=== PATIENT | female | born 1965 | race Caucasian/White ===

== ENCOUNTER 2022-12-10 14:47 | Inpatient (IN) | payer OTHER, SELFPAY ==
[2022-12-10] VITALS (59 sets, daily range): BP systolic 129–197; BP diastolic 79–162; PULSE 77–111; RESP 12–26; TEMP 36.4–36.7; O2SAT 87–100; BMI 48.1
--- NOTE | 2022-12-10 15:05 | XRR_ITS ---
PROCEDURE INFORMATION: Exam: XR Chest Exam date and time: 12/10/2022 3:15 PM Age: 57 years old Clinical indication: Dyspnea TECHNIQUE: Imaging protocol: Radiologic exam of the chest. Views: 1 view. COMPARISON: No relevant prior studies available. FINDINGS: Tubes, catheters and devices: Surgical clips project over the right axillary region. Lungs: There is increased interstitial markings, in association with small left pleural effusion, which in the setting of cardiomegaly is consistent with pulmonary edema. Pneumonia should be excluded clinically. No pneumothorax. Pleural spaces: See Lungs finding. Heart/Mediastinum: Mildly enlarged heart. Bones/joints: Unremarkable. XR/XR chest 1V portable [id number] IMPRESSION: Imaging findings of pulmonary edema with small left pleural effusion. Pneumonia should be excluded clinically.
--- NOTE | 2022-12-10 15:16 | ED_ITS ---
HPI - SOB/Dyspnea General: Chief Complaint: Shortness of Breath/Dyspnea Stated Complaint: SOB Time Seen by Provider: 12/10/22 15:01 Source: patient and family (sisters) Mode of arrival: ambulatory Limitations: no limitations History of Present Illness: HPI Narrative: 57-year-old female presents to the emergency department complaining of 1 month of progressive shortness of breath. She has also noticed progressive lower extremity edema and now her sisters are noticing some upper extremity edema. Patient endorses orthopnea and shortness of breath with minimal exertion. She went to her primary care doctor and was diagnosed with a bronchitis and sinus infection during the first few weeks of her shortness of breath. She was told she had a murmur at that time. She went back and saw another provider yesterday. They started her on Lasix 20 mg once daily. They also told her she might have congestive heart failure. Additionally she had some erythema in the right lower extremity on the anterior arias and they prescribed her Bactrim telling her it was MRSA Associated symptoms: Reports orthopnea; Deny abdominal pain, chest pain, extremity pain, fever(s), hemoptysis, nausea, palpitations, syncope or vomiting Review of Systems General: Reports: 10 or more systems reviewed and unremarkable except in HPI and below Const: Denies: fever(s), chills or body aches Eyes: Denies: change in vision ENMT: Denies: throat pain Card: Reports: edema, swelling of feet/ankles, dyspnea on exertion and orthopnea; Denies: chest pain, palpitations or syncope Resp: Reports: dyspnea and non-productive cough; Denies: productive cough, pain on inspiration or hemoptysis GI: Denies: abdominal pain, nausea, vomiting or diarrhea : Denies: flank pain, dysuria or urinary frequency Musc: Denies: neck pain, back pain, extremity pain or extremity swelling Skin/Breast: Reports: erythema (Right anterior arias) Neuro: Denies: headache(s), numbness in extremities, weakness in extremities, lack of coordination or difficulty walking PFS ED PFSH: Medical History (Updated 12/10/22 @ 17:32 by Raúl Clarke MD) History of breast cancer Hypertension Surgical History (Updated 12/10/22 @ 17:30 by Raúl Clarke MD) History of mastectomy Family History (Updated 12/10/22 @ 17:30 by Raúl Clarke MD) Sister CAD (coronary artery disease) Hypertension Brother CAD (coronary artery disease) Hypertension Social History (Updated 12/10/22 @ 17:31 by Raúl Clarke MD) Smoking and tobacco status: never smoked Alcohol intake: never Substance/Drug Use: never Physical Exam Const: COMMON NORMALS: no limitations, alert and well nourished; negative for average body habitus (Obese) EXAM LIMITATIONS: no altered mental status HENMT: COMMON NORMALS: normocephalic, atraumatic and external ears normal HEAD & SCALP: normocephalic and atraumatic EXTERNAL EAR: Yes external ears normal MOUTH: no muffled voice Eye: COMMON NORMALS: EOMs intact bilaterally, conjunctivae normal and no scleral icterus CONJUNCTIVA: Yes conjunctivae normal Neck/C-Spine: COMMON NORMALS: no JVD GENERAL: Yes normal visual inspection and Yes trachea midline Chest: OTHER: Breast cancer on the right side status post axillary lymph node dissection Resp: EFFORT & INSPECTION: Yes tachypneic, No pursed lip breathing, Yes labored, No Actively coughing, No retractions, No uses accessory muscles, No audible wheezes and No tracheal deviation AUSCULTATION: diminished lung sounds Cardio: COMMON NORMALS: no JVD and regular rhythm RATE: tachycardic R HYTHM: regular rhythm HEART SOUNDS: Murmur heart sound present OTHER: Bilateral lower extremity pitting edema 3+ GI: COMMON NORMALS: Soft to palpation and non-tender PALPATION: Yes Soft to palpation and No Guarding due to palpation present (GI) Extremity: NARRATIVE EXTREMITY EXAM: Bilateral lower extremity edema. Mild edema in the hands Neuro: COMMON NORMALS: moves all extremities, no focal motor deficits and no sensory deficits noted SENSORIUM/ORIENTATION: Yes alert SPEECH: speech normal Psych: COMMON NORMALS: mental status grossly normal, Normal thought process present, cooperative, normal affect and speech normal SPEECH: Yes normal speech THOUGHT PROCESS: Normal thought process present Skin: OTHER: The reported MRSA infection in her right lower extremity is actually petechial tattooing from increased compartment pressures due to the swelling. It is not warm, tender, and does not have the appearance of cellulitis nor purulent MRSA. Course Vital Signs: Vital signs: Vital Signs Temperature 97.5 F L 12/10/22 14:54 Pulse Rate 84 12/10/22 18:10 Respiratory Rate 21 H 12/10/22 15:35 Blood Pressure 164/108 12/10/22 18:10 Pulse Oximetry 96 12/10/22 17:45 Oxygen Delivery Me thod 12/10/22 18:00 MDM - SOB/Dyspnea Medical Decision Making 57-year-old female with progressive symptoms of congestive heart failure. She is quite hypertensive here but states she gets quite nervous when she comes to the doctor. She has a loud heart murmur which may be the culprit for her con gestive heart failure. This would be a new diagnosis. She has never had an echocardiogram. She has 3+ pitting edema. Patient needs an urgent echocardiogram. I will start her diuresis. We will check her kidney function and electrolytes. She denies any known ischemic heart disease or any congenital or genetic cardiomyopathies. Patient is a non-smoker. I have started with 2 inches of nitroglycerin on the chest to decrease preload and blood pressure. I have started with 40 mg of IV Lasix. An EKG, chest x-ray, labs are pending. Patient will likely need admission based on her symptomatology. EKG shows a sinus rhythm at a rate of 92 bpm, there is a left axis deviation, there is nonspecific moderate intraventricular conduction delay, there is delayed R wave progression which could be a sign of old anterior infarction, there are Q waves noted in the inferior leads which could be a sign of old myocardial infarction. There is possible mild atrial enlargement on the left based on P wave morphology. The chest x-ray shows pulmonary vascular congestion and left-sided pleural effus ion. The patient's hemoglobin is mildly low at 10. The patient's blood pressure has not improved with settling in and calming down. Nitroglycerin 2 inch paste did not improve her blood pressure. Patient will be started on nitroglycerin drip. I have spoken with the hospitalist and the patient will be admitted to the [facility]. Lab Data 12/10/22 15:59 12/10/22 15:59 Labs/Radiology: Radiology Impressions Chest X-Ray 12/10/22 15:05 IMPRESSION: Imaging findings of pulmonary edema with small left pleural effusion. Pneumonia should be excluded clinically. Laboratory Results WBC 5.7 10^3/uL (4.0-10.0) 12/10/22 15:59 RBC 4.09 10^6/uL (4.1-5.3) L 12/10/22 15:59 Hgb 10.0 g/dL (11.5-15.3) L 12/10/22 15:59 Hct 33.8 % (37.0-47.0) L 12/10/22 15:59 MCV 82.6 fl (81-99) 12/10/22 15:59 MCH 24.4 pg (28.0-34.0) L 12/10/22 15:59 MCHC 29.6 g/dL (30.0-36.0) L 12/10/22 15:59 RDW 17.3 % (12.1-15.1) H 12/10/22 15:59 Plt Count 185 10^3/cmm (130-400) 12/10/22 15:59 MPV 10.0 fL (7.4-10.4) 12/10/22 15:59 Neut % (Auto) 74.9 % 12/10/22 15:59 Lymph % (Auto) 14.2 % 12/10/22 15:59 [place] % (Auto) 7.9 % 12/10/22 15:59 Eos % (Auto) 2.1 % 12/10/22 15:59 Baso % (Auto) 0.7 % 12/10/22 15:59 Neut # (Auto) 4.27 10^3/uL (1.8-7.7) 12/10/22 15:59 Lymph # (Auto) 0.8 10^3/uL (0.8-4.8) 12/10/22 15:59 [place] # (Auto) 0.5 10^3/uL (0.2-0.9) 12/10/22 15:59 Eos # (Auto) 0.1 10^3/uL (0.0-0.8) 12/10/22 15:59 Baso # (Auto) 0.0 10^3/uL (0.0-0.1) 12/10/22 15:59 Nucleated RBC % (auto) 0 % 12/10/22 15:59 Nucleated RBCs # 0.0 /100WBC 12/10/22 15:59 Sodium 139 mmol/L (136-145) 12/10/22 15:59 Potassium 3.9 mmol/L (3.5-5.1) 12/10/22 15:59 Chloride 104 mmol/L (98-107) 12/10/22 15:59 Carbon Dioxide 25 mmol/L (22-29) 12/10/22 15:59 Anion Gap 13.9 (5-19) 12/10/22 15:59 BUN 11 mg/dL (6-20) 12/10/22 15:59 Creatinine 0.9 mg/dL (0.5-0.9) 12/10/22 15:59 GFR Calculation 64.8 mL/min (90-130) L 12/10/22 15:59 Glucose 108 mg/dL (65-115) 12/10/22 15:59 Calculated Osmolality 288 mOsm/kg (285-295) 12/10/22 15:59 Calcium 9.1 mg/dL (8.5-10.5) 12/10/22 15:59 Magnesium 1.8 mg/dL (1.7-2.3) 12/10/22 15:59 Troponin T Baseline 86 ng/L (0-10) H 12/10/22 15:59 NT-Pro-B Natriuret Pep 79459 pg/mL (0-125) H 12/10/22 15:59 Discharge Plan Discharge Patient Disposition: Admitted As Inpatient Admit Provider: Raúl Clarke Clinical Impression: Congestive heart failure, Heart murmur, Bilateral edema of lower extremity, Hypertensive emergency Condition: Stable Coding Level of Care Code ED Procurement Consultant for Drew Martínez
--- NOTE | 2022-12-10 15:44 | ECG_ITS ---
[facility] Test Date: 2022-12-10 Pat Name: Jalyn Sam Department: Room: Gender: Female Maintenance Service Technician: : 1965 Requested By: Virgilio Oconnell Order Number: [id number] Eugenio MD: Soctt Chen M.D. Measurements Intervals [place] Rate: 92 P: 76 TX: 164 QRS: -61 QRSD: 107 T: 150 QT: 382 QTc: 474 Interpretive Statements SINUS RHYTHM INFERIOR MYOCARDIAL INFARCTION , PROBABLY OLD [40+ ms Q WAVE AND/OR ST/T ABNORMALITY IN II/aVF] ANTEROLATERAL MYOCARDIAL INFARCTION , OF INDETERMINATE AGE [40+ ms Q WAVE IN I/aVL/V3-V6] No previous ECG available for comparison Electronically Signed On 12-11-2022 17:31:52 INTERNET SALES REPRESENTATIVE by Scott Chen M.D. [id number]
[2022-12-10 16:06] LABS: Basophils % 0.7 %; Eosinophils # 0.1 10^3/uL (0.0-0.8); Eosinophils % 2.1 %; Hematocrit 33.8 % (37.0-47.0); Lymphocytes # 0.8 10^3/uL (0.8-4.8); Lymphocytes % 14.2 %; Mean Corpuscular HGB Conc 29.6 g/dL (30.0-36.0); Mean Corpuscular Hemoglobin 24.4 pg (28.0-34.0); Mean Corpuscular Volume 82.6 fl (81-99); Monocytes # 0.5 10^3/uL (0.2-0.9); Monocytes % 7.9 %; Neutrophils # 4.27 10^3/uL (1.8-7.7); Neutrophils % 74.9 %; Nucleated Red Blood Cells % 0 %; Platelet Count 185 10^3/cmm (130-400); Red Blood Count 4.09 10^6/uL (4.1-5.3); Red Cell Distribution Width 17.3 % (12.1-15.1); White Blood Count 5.7 10^3/uL (4.0-10.0)
[2022-12-10] MEDS: nitroglycerin 1 gm/inch oint Pkt 2 INCH TOPICAL (16:08)
[2022-12-10] MEDS: FUROsemide 10 mg/mL SDV 4mL 40 MG IVP ×2 (16:08→20:25)
[2022-12-10 16:31] LABS: Troponin(5th) Baseline 86 ng/L (0-10)
[2022-12-10 16:41] LABS: Anion Gap 13.9 (5-19); Blood Urea Nitrogen 11 mg/dL (6-20); Calcium 9.1 mg/dL (8.5-10.5); Carbon Dioxide 25 mmol/L (22-29); Chloride 104 mmol/L (98-107); Glomerular Filtration Rate 64.8 mL/min (90-130); Glucose 108 mg/dL (65-115); Magnesium 1.8 mg/dL (1.7-2.3); NT Pro B Type Natriuretic Pept 11232 pg/mL (0-125); Osmolality Calculated 288 mOsm/kg (285-295); Potassium 3.9 mmol/L (3.5-5.1); Sodium 139 mmol/L (136-145)
[2022-12-10] MEDS: nitroglycerin drip 50 MG/250 ML PREMIX IV (17:26)
--- NOTE | 2022-12-10 17:28 | PM.HP ---
Providers/Chief Complaint Chief Complaint: SOB History of Present Illness Jalyn Sam is a 57 year old female with a past medical history of morbid obesity, right-sided breast cancer, status postmastectomy and chemoradiation, history of hypertension, recently diagnosed with heart failure placed on Lasix who presents to [facility] due to acute on chronic worsening of lower extremity edema and shortness of breath. Patient only for the last month she started developing on exertion, progressing to rest with bilateral lower extremity edema. Denies any chest pain, no palpitations, does have an extensive family history of CAD in her brothers and sisters. She tells me that her shortness of breath and her lower extremity edema worsen, she saw her primary care reported on Lasix however she continues to have edema and shortness of breath with exertion. She also has hypertension and she is quite hypertensive in the emergency room but she tells me that she always has high blood pressure. Denies a cardiovascular history. Denies any chest pain. No palpitations. No history of diabetes. No history of smoking. No history of COPD. Review of Systems Const: Denies: fever(s), chills, fatigue or malaise Eyes: Denies: change in vision ENMT: Denies: nasal congestion Card: Reports: edema, dyspnea on exertion and orthopnea; Denies: chest pain or palpitations Resp: Denies: productive cough, non-productive cough or wheezing GI: Denies: abdominal pain, nausea, vomiting, hematochezia or melena : Denies: urinary frequency Musc: Denies: neck pain or back pain Skin/Breast: Denies: rash Neuro: Denies: headache(s), dizziness or vertigo Psych: Reports: anxiety Endo: Denies: polyuria or polydipsia Medications/Allergies Home Medications Medication Instructions Recorded Confirmed Last Taken Type albuterol sulfate 90 mcg/actuation 2 puff inhalation Q6H PRN 10/29/22 12/09/22 Unknown Rx aerosol inhaler (Ventolin HFA) shortness of breath or wheezing #8.5 grams promethazine-DM 6.25 mg-15 mg/5 mL 5 ml PO Q6H PRN cough #200 mL 10/29/22 12/09/22 Unknown Rx oral syrup furosemide 20 mg tablet (Lasix) 20 mg PO DAILY #14 tabs 12/09/22 12/09/22 Unknown Rx sulfamethoxazole 800 1 tab PO BID 10 days #20 tabs 12/09/22 12/09/22 Unknown Rx mg-trimethoprim 160 mg tablet (Bactrim DS) Allergies Allergy/AdvReac Type Severity Reaction Status Date / Time No Known Allergies Allergy Unverified 12/09/22 12:43 PFSH Acute PFSH: Medical History (Updated 12/10/22 @ 17:32 by Raúl Clarke MD) History of breast cancer Hypertension Surgical History (Updated 12/10/22 @ 17:30 by Raúl Clarke MD) History of mastectomy Family History (Updated 12/10/22 @ 17:30 by Raúl Clarke MD) Sister CAD (coronary artery disease) Hypertension Brother CAD (coronary artery disease) Hypertension Social History (Updated 12/10/22 @ 17:31 by Raúl Clarke MD) Smoking and tobacco status: never smoked Alcohol intake: never Substance/Drug Use: never Vitals/I&O/Wt Last Vital Signs Temp 97.5 F L 12/10/22 14:54 Pulse 104 H 12/10/22 17:00 Resp 21 H 12/10/22 15:35 BP 181/114 12/10/22 17:00 Pulse Ox 97 12/10/22 17:00 O2 Del Method 12/10/22 14:54 Weight last 48 hrs Weight 156.489 kg Physical Exam Const: COMMON NORMALS: no acute distress and patient oriented x3 HENMT: COMMON NORMALS: normocephalic HEAD & SCALP: normocephalic Eye: COMMON NORMALS: Equal, round and reactive pupils present and EOMs intact bilaterally Neck/C-Spine: COMMON NORMALS: full ROM and no lymphadenopathy Lymph: LYMPHATIC: no lymphadenopathy noted Chest: COMMONS NORMALS: normal inspection of the chest Resp: COMMON NORMALS: normal respiratory effort, No retractions, No use of accessory muscles and clear to auscultation bilaterally AUSCULTATION: crackles Cardio: COMMON NORMALS: regular rate, regular rhythm, S1 normal heart sound present and S2 normal heart sound present RATE: regular rate RHYTHM: regular rhythm HEART SOUNDS: S1 normal heart sound present, S2 normal heart sound present and Murmur heart sound present systolic GI: COMMON NORMALS: Normal to inspection, nondistended, normoactive bowel sounds present, Soft to palpation and non-tender Extremity: NARRATIVE EXTREMITY EXAM: 3+ pitting edema bilateral extremity Neuro: COMMON NORMALS: patient oriented x3, CN's II-XII intact bilaterally, moves all extremities and no focal motor deficits Psych: COMMON NORMALS: mental status grossly normal Data 12/10/22 15:59 12/10/22 15:59 A&P Assessment and plan (1) Hypertensive emergency: (2) Acute CHF: (3) Bilateral edema of lower extremity: (4) NSTEMI (non-ST elevated myocardial infarction): (5) Pulmonary edema: (6) Morbid obesity: Plan Acute CHF exacerbation -Currently type unknown -With bilateral extreme edema, pulmonary edema, Plan -Fluid restrictions 1500 cc -Monitor creatinine, potassium, mag -Lasix 40 IV twice daily -Spironolactone 25 mg once daily -Monitor urine output -Place Fox catheter -Full code -Lovenox for DVT prophylaxis Hypertensive urgency -We will place on nitro drip Cardiac murmur, cardiac echo NSTEMI, serial EKGs or troponins telemetry monitoring Attestations Medical Necessity Statement*: Patient requires hospitalization, inpatient, greater than 2 midnights, for hypertensive urgency, fluid overload, pulm edema, acute CHF exacerbation, NSTEMI Coding Level of Care Code Acute Code for [facility] Fwd Diagnoses Hypertensive emergency I16.1 Acute CHF I50.9 Bilateral edema of lower extremity R60.0 NSTEMI (non-ST elevated myocardial infarction) I21.4 Pulmonary edema J81.1 Morbid obesity E66.01
[2022-12-10 18:37] LABS: Troponin 5 2HR 99.95 ng/L (0-10)
[2022-12-10 18:46] LABS: Troponin 5 2HR Delta 13.95 ABS# (0-10)
--- NOTE | 2022-12-10 18:55 | PC.NURSE ---
Pt arrives to ICu from ED. Pt alert and oriented. Sinus rhythm noted on monitor. IV noted left arm, Nitro infusing at 5mcg/min. B/p check SBP 178, nitro gtt increased to 15mcg/min. Pt settled in bed.. Family brought back to room. report given to shift supervisor rn.
[2022-12-10 20:16] LABS: Chol HDL Ratio 3.33 mg/dL (0.0-4.40); Cholesterol 130 mg/dL (0-200); HDL Cholesterol 39 mg/dL (60-100); LDL Cholesterol Calculated 74 mg/dL (50-129); Triglycerides 84 mg/dL (0-150)
[2022-12-10] MEDS: enoxaparin 40 mg/0.4 mL Syringe SUBCUT (20:25)
[2022-12-10] MEDS: atorvastatin 40 mg Tablet PO (20:26)
[2022-12-10] MEDS: pantoprazole 40 mg SDV IVP (20:26)
[2022-12-10] MEDS: carvedilol 3.125 mg Tablet PO (20:26)
[2022-12-10] MEDS: spironolactone 25 mg Tablet PO (20:27)
[2022-12-10] MEDS: aspirin 81 mg EC Tablet PO (20:27)
[2022-12-10] MEDS: heparin drip 25,000 UNIT/500 ML PREMIX 36 UNIT IV (20:56)
[2022-12-10 22:18] LABS: Add Urine Microscopic? NO; Charge for UA Resulting for Rev
[2022-12-10 22:29] LABS: Estmated Average Glucose 97
[2022-12-10 22:36] LABS: Bilirubin Urine Neg (Negative); Blood Urine Neg (Negative); Glucose Urine UA Norm (Normal); Ketones Urine Negative (Negative); Leukocyte Esterase Urine Negative (Negative); Nitrate Urine Negative (Negative); Protein Urine Neg (Negative); Sulfosalicylic Acid Urine Negative (Negative); Urine Appearance Clear (CLEAR); Urine Color Colorless (Yellow); Urobilinogen Urine Neg (Negative); pH Urine 8 (5-7)
[2022-12-11] VITALS (98 sets, daily range): BP systolic 102–188; BP diastolic 54–132; PULSE 72–99; RESP 8–33; TEMP 36.5–37.2; O2SAT 88–100
[2022-12-11 04:13] LABS: Basophils % 0.7 %; Eosinophils # 0.2 10^3/uL (0.0-0.8); Hematocrit 38.4 % (37.0-47.0); Hemoglobin 11.3 g/dL (11.5-15.3); Lymphocytes # 1.3 10^3/uL (0.8-4.8); Lymphocytes % 20.8 %; Mean Corpuscular HGB Conc 29.4 g/dL (30.0-36.0); Mean Corpuscular Volume 81.5 fl (81-99); Mean Platelet Volume 10.9 fL (7.4-10.4); Monocytes # 0.6 10^3/uL (0.2-0.9); Neutrophils # 3.92 10^3/uL (1.8-7.7); Neutrophils % 65.3 %; Nucleated Red Blood Cells % 0 %; Platelet Count 220 10^3/cmm (130-400); Red Blood Count 4.71 10^6/uL (4.1-5.3); Red Cell Distribution Width 17.4 % (12.1-15.1)
[2022-12-11 04:26] LABS: Anion Gap 12.5 (5-19); Blood Urea Nitrogen 11 mg/dL (6-20); Calcium 8.9 mg/dL (8.5-10.5); Carbon Dioxide 30 mmol/L (22-29); Chloride 103 mmol/L (98-107); Glomerular Filtration Rate 57.4 mL/min (90-130); Glucose 103 mg/dL (65-115); Magnesium 1.8 mg/dL (1.7-2.3); Osmolality Calculated 294 mOsm/kg (285-295); Potassium 3.5 mmol/L (3.5-5.1); Sodium 142 mmol/L (136-145)
[2022-12-11 04:34] LABS: Partial Thromboplastin Time 139.8 SECONDS (23.9-36.7)
[2022-12-11 04:36] LABS: NT Pro B Type Natriuretic Pept 12803 pg/mL (0-125)
--- NOTE | 2022-12-11 06:00 | USCV_ITS ---
Flaco Jalyn Age: 57 Gender: F : 1965 Exam Date: 12/11/2022 09:27 Ordering Phys: Raúl Clarke MD Technologist: Kush Lopez Exam Location: [facility] [place] Indication: CHEST BP: 122 / 75 HR: 83 Rhythm: Sinus Technical Quality: Adequate MEASUREMENTS (Male / Female) Normal Values 2D ECHO LV Diastolic Diameter PLAX 4.0 cm 4.2 - 5.9 / 3.9 - 5.3 cm LV Systolic Diameter PLAX 3.2 cm IVS Diastolic Thickness 1.3 cm 0.6 - 1.0 / 0.6 - 0.9 cm IVS Systolic Thickness 2.2 cm LVPW Diastolic Thickness 1.2 cm 0.6 - 1.0 / 0.6 - 0.9 cm LVPW Systolic Thickness 1.9 cm LVOT Diameter 2.1 cm LV Ejection Fraction 2D Teich 26.9 % LV Ejection Fraction MOD 2C 42.9 % LV Ejection Fraction 2C AL 42.5 % LA Diameter 4.4 cm Aorta at Sinotubular Diameter 3.3 cm IVC Diameter 1.8 cm M-MODE Aortic Annulus Diameter 4.0 cm LA Ao Ratio MM 1.1 MV E Point Septal Separation 1.4 cm DOPPLER AV Peak Velocity 548.0 cm/s LVOT Peak Velocity 78.0 cm/s AV Area Cont Eq vti 0.5 cm squared AV Area Cont Eq pk 0.5 cm squared MV Area PHT 5.0 cm squared Mitral E to A Ratio 1.7 MV E' Velocity 57.0 cm/s Mitral E to MV E' Ratio 17.5 Mitral E to LV E' Lateral Ratio 19.0 Mitral E to LV E' Septal Ratio 16.2 TR Peak Velocity 124.0 cm/s TR Peak Gradient 6.2 mmHg FINDINGS Left Ventricle Mild to moderate concentric ventricular hypertrophy. Diffuse hypokinesia of the left ventricular ejection fraction of 43% Right Ventricle Normal right ventricular size and systolic function. Normal right ventricular size. Right Atrium Normal right atrial size. Left Atrium Mildly increased left atrial size. Mitral Valve Thickened mitral valve. Mild mitral valve regurgitation. Mild mitral annular calcification. Aortic Valve Trace to mild aortic valve regurgitation. Severe aortic valve stenosis, mean gradient 50.6 mmHg, MACO 0.52 cm squared. Peak gradient of 128 mmHg and a peak velocity of 5.48 m/s Tricuspid Valve No gross abnormalities noted Pulmonic Valve No gross abnormalities noted Pericardium Normal pericardium without effusion. Aorta Normal aortic annulus size. IVC Normal inferior vena cava. CONCLUSIONS Diffuse hypokinesia of the left ventricular ejection fraction of 43%. Mild to moderate concentric ventricular hypertrophy. Severe aortic valve stenosis, mean gradient 50.6 mmHg, MACO 0.52 cm squared. Peak gradient of 128 mmHg and a peak velocity of 5.48 m/s. Trace to mild aortic valve regurgitation. Mild mitral valve regurgitation. Mild mitral annular calcification. Could not calculate the PA pressure because of the poor Doppler signals There is no pericardial effusion. There are no intracardiac masses. No similar previous studies are available for comparison Dr Mayuri Valverde MD FAC (Electronically Signed) Final Date: 12 December 2022 07:45 S
[2022-12-11] MEDS: carvedilol 3.125 mg Tablet PO ×2 (06:05→18:06)
[2022-12-11] MEDS: aspirin 81 mg EC Tablet PO (08:23)
[2022-12-11] MEDS: FUROsemide 10 mg/mL SDV 4mL 40 MG IVP ×2 (08:23→21:59)
[2022-12-11] MEDS: heparin drip 25,000 UNIT/500 ML PREMIX 36 UNIT IV (10:11)
[2022-12-11 11:49] LABS: Partial Thromboplastin Time 76.6 SECONDS (23.9-36.7)
--- NOTE | 2022-12-11 12:08 | PC.CHAP ---
Pastoral Care Encounter/Spiritual Assessment Type of Contact [] Declined assessment expert visit [] Patient/Family/Request visit [] Outpatient visit [] Follow-up visit [] Physician referral [] Code/Alert [x] Routine visit [] Staff referral [] Actively dying [x] Patient sleeping [] Family support [] [] Out of room [] Palliative care [] [] Receiving care in room [] Pre-surgical visit [] Trauma [] Long length of stay [x] ICU visit [] Other: Relational/Emotional Strength [] Patient feels connected with others/family/visitors/staff [] Distress [] Loneliness/isolation [] Abandonment Spirituality of Patient [] Person of Rosaline [] Attends Christian of their Rosaline [] Believes in Prayer [] Reads Bible or Mu-Ism materials [] There are Spiritual issues to be addressed Wheelchair Rental Clerk Interventions [x] Prayer [] Active listening [] Non-anxious presence [] Spiritual/emotional support [] Crisis/trauma care [] Spiritual counseling [] Bereavement support [] Provided bereavement packet [] Provided Bible/devotional materials [] Provided toy/stuffed animal, coloring book to patient or family member [] Provided Communion [] Anointing/[place] [] Salvation [x] Completed spiritual assessment [] Other: Impact on Illness or Injury [] Angry [] Fearful [] Anxious [] Often cries [] Exhaustion [] Unable to work [] Unable to attend latter day [] Unable to walk/stand [] Unable to read [] Unable to drive [] Unable to eat/drink [] Unable to sleep [] Unable to be with family [] Patient intubated [] Other: Summary Time spent with patient
--- NOTE | 2022-12-11 15:13 | P.PN_ITS ---
Subjective Subjective: She reports she is improving. Denies chest pain or pressure. Breathing is improving. Vitals/I&O/Wt Last Vital Signs Temp 98.9 F 12/11/22 08:00 Pulse 95 12/11/22 14:00 Resp 17 12/11/22 12:15 BP 181/113 12/11/22 12:15 Pulse Ox 95 12/11/22 13:24 O2 Del Method 12/11/22 13:24 12/11/22 12/11/22 12/11/22 06:59 14:59 22:59 Intake Total 485.05 / 698.05 957.6 / 957.6 Output Total 4050 / 7050 Balance -3564.95 / -6351.95 957.6 / 957.6 Weight last 48 hrs Weight 139.706 kg Weight 156.489 kg Physical Exam Narrative: Accompanied by friend. Const: COMMON NORMALS: patient oriented x3 and alert GENERAL APPEARANCE: cooperative NUTRITIONAL APPEARANCE: obese ORIENTATION/CONSCIOUSNESS: Yes awake HENMT: COMMON NORMALS: oropharynx normal Resp: COMMON NORMALS: normal respiratory effort and clear to auscultation bilaterally AUSCULTATION: clear to auscultation bilaterally Cardio: COMMON NORMALS: regular rhythm, S1 normal heart sound present, S2 normal heart sound present and No murmurs present (Cardio) RHYTHM: regular rhythm HEART SOUNDS: S1 normal heart sound present and S2 normal heart sound present GI: COMMON NORMALS: Normal to inspection, nondistended, normoactive bowel sounds present, Soft to palpation and non-tender PALPATION: Yes Soft to palpation Extremity: COMMON NORMALS: no joint enlargement GENERAL: Yes edema (3+ BL LE) Neuro: COMMON NORMALS: patient oriented x3 and moves all extremities SENSORIUM/ORIENTATION: Yes alert Skin: OTHER: Bilateral papular/patchy erythema at lower legs overlying edema. No diffuse erythema. No warmth to touch. No drainage. Urinary Catheter Management: Fox: Cath Placed During This Visit: yes Reason for Continuing Indwelling Catheter: Accurate Measurement of Urinary Output in Critically Ill Patients Urinary Catheter Date of Insertion: 12/10/22 Urinary Catheter Time of Insertion: 21:00 Data 12/11/22 03:13 12/11/22 03:13 A&P Assessment and plan (1) Hypertensive emergency: (2) Acute CHF: (3) Bilateral edema of lower extremity: (4) NSTEMI (non-ST elevated myocardial infarction): (5) Pulmonary edema: (6) Morbid obesity: Plan Acute CHF exacerbation: Reviewed I&O, she is well in negative balance. Producing good urine output. Discussed with her and her friend. Continue diuresis for acute decompensation of CHF. Type unknown. Follow-up TTE which has been obtained, pending read. Monitor electrolytes and renal function with diuresis. Potassium reviewed 3.5. Will give potassium. At risk of severe hypokalemia and arrhythmia with diuresis. Creatinine 1. BUN 11. Requesting BMP. Monitor on telemetry. Reviewed troponin series, noted upper moderate elevation, she is chest pain- free. Discussed with her possibility of NSTEMI versus demand ischemia. Further evaluation will be considered, for now pending TTE results. Continue anticoagulation for possible NSTEMI. Monitor blood counts while on blood thinner. CBC requested. Abnormal TSH: TSH noted 4.3. Minimal abnormality. Will check free T4. Hypertensive urgency: Blood pressures with improvement, but still rather elevated. At risk of severe worsening hypertension, currently on nitroglycerin drip. Requiring close monitoring while on the drip. Avoid hypotension. With possible NSTEMI, at risk of cardiac ischemia, CVA, other complications secondary to severe hypertension. With CHF exacerbation, for now continue nitro drip but may be able to wean off of it shortly. Continue diuretic. Monitor blood pressure. Will add amlodipine, Cont spironolactone. Cardiac murmur, cardiac echo NSTEMI, as above. Noted elevated troponins, discussed with her and family. EKG on my interpretation with nonspecific T waves although cannot exclude some degree of ischemia with T wave flattening anterolaterally. Continue cardiac medications. Follow-up TTE. Will need further work-up. Attestations Medical Necessity Statement*: Continue admission for assessment management of acute decompensated CHF, NSTEMI, hypertensive urgency Diagnoses Hypertensive emergency I16.1 Acute CHF I50.9 Bilateral edema of lower extremity R60.0 NSTEMI (non-ST elevated myocardial infarction) I21.4 Pulmonary edema J81.1 Morbid obesity E66.01
[2022-12-11] MEDS: amlodipine 5 mg Tablet PO (16:01)
[2022-12-11] MEDS: potassium chloride ER 20 mEq Tablet 40 MEQ PO (16:01)
[2022-12-11 17:42] LABS: Free T4 Free Thyroxine 1.26 ng/dL (0.82-1.77)
[2022-12-11] MEDS: enoxaparin 40 mg/0.4 mL Syringe SUBCUT (18:06)
[2022-12-11] MEDS: spironolactone 25 mg Tablet PO (18:06)
[2022-12-11] MEDS: pantoprazole 40 mg SDV IVP (18:06)
[2022-12-11 18:42] LABS: Partial Thromboplastin Time 60.7 SECONDS (23.9-36.7)
[2022-12-11] MEDS: atorvastatin 40 mg Tablet PO (21:59)
[2022-12-12] VITALS (74 sets, daily range): BP systolic 66–178; BP diastolic 50–113; PULSE 72–98; RESP 7–31; TEMP 36.5–37.1; O2SAT 89–99
[2022-12-12 02:17] LABS: Basophils % 0.4 %; Eosinophils # 0.2 10^3/uL (0.0-0.8); Eosinophils % 3.8 %; Hematocrit 38.3 % (37.0-47.0); Hemoglobin 11.4 g/dL (11.5-15.3); Lymphocytes # 1.4 10^3/uL (0.8-4.8); Lymphocytes % 25.5 %; Mean Corpuscular HGB Conc 29.8 g/dL (30.0-36.0); Mean Corpuscular Hemoglobin 24.5 pg (28.0-34.0); Mean Corpuscular Volume 82.2 fl (81-99); Mean Platelet Volume 9.9 fL (7.4-10.4); Monocytes # 0.6 10^3/uL (0.2-0.9); Monocytes % 11.3 %; Neutrophils # 3.14 10^3/uL (1.8-7.7); Neutrophils % 58.8 %; Nucleated Red Blood Cells % 0 %; Platelet Count 207 10^3/cmm (130-400); Red Blood Count 4.66 10^6/uL (4.1-5.3); Red Cell Distribution Width 17.5 % (12.1-15.1); White Blood Count 5.3 10^3/uL (4.0-10.0)
[2022-12-12 02:39] LABS: Anion Gap 11.8 (5-19); Blood Urea Nitrogen 10 mg/dL (6-20); Calcium 8.6 mg/dL (8.5-10.5); Carbon Dioxide 31 mmol/L (22-29); Chloride 99 mmol/L (98-107); Glomerular Filtration Rate 51.4 mL/min (90-130); Glucose 110 mg/dL (65-115); Osmolality Calculated 286 mOsm/kg (285-295); Partial Thromboplastin Time 38.6 SECONDS (23.9-36.7); Potassium 3.8 mmol/L (3.5-5.1); Sodium 138 mmol/L (136-145)
[2022-12-12] MEDS: carvedilol 3.125 mg Tablet PO ×2 (06:24→17:44)
[2022-12-12] MEDS: heparin drip 25,000 UNIT/500 ML PREMIX 30 UNIT IV (06:25)
[2022-12-12] MEDS: aspirin 81 mg EC Tablet PO (08:07)
[2022-12-12] MEDS: amlodipine 5 mg Tablet PO (08:07)
[2022-12-12] MEDS: FUROsemide 10 mg/mL SDV 4mL 40 MG IVP ×2 (08:07→20:45)
[2022-12-12 09:36] LABS: Partial Thromboplastin Time 73.6 SECONDS (23.9-36.7)
[2022-12-12 16:07] LABS: Partial Thromboplastin Time 212.5 SECONDS (23.9-36.7)
--- NOTE | 2022-12-12 16:13 | PC.NURSE ---
Dr. Anne notified of APTT 212.5. Heparin drip stopped. Redraw scheduled for 1729. Will contact provider with results.
--- NOTE | 2022-12-12 16:23 | PM.PN ---
Subjective Subjective: Breathing is gradually improving. She still needs to sleep sitting up. Has had significant orthopnea. So far has been too afraid to try to wean back. No chest pain. Slight improvement in lower extremity edema. Vitals/I&O/Wt Last Vital Signs Temp 98.2 F 12/12/22 08:00 Pulse 85 12/12/22 13:30 Resp 19 H 12/12/22 13:30 BP 129/83 12/12/22 13:30 Pulse Ox 96 12/12/22 13:30 O2 Del Method 12/12/22 13:30 12/12/22 12/12/22 12/12/22 06:59 14:59 22:59 Intake Total 503.00 / 2197.00 250 / 250 295 / 545 Output Total 4100 / 9900 2100 / 2100 Balance -3597.00 / -7703.00 -1850 / -1850 295 / -1555 Weight last 48 hrs Weight 130.379 kg Weight 139.706 kg Physical Exam Narrative: Accompanied by family. Const: COMMON NORMALS: patient oriented x3 and alert GENERAL APPEARANCE: cooperative NUTRITIONAL APPEARANCE: obese ORIENTATION/CONSCIOUSNESS: Yes awake HENMT: COMMON NORMALS: oropharynx normal Resp: COMMON NORMALS: normal respiratory effort and clear to auscultation bilaterally AUSCULTATION: clear to auscultation bilaterally Cardio: COMMON NORMALS: regular rhythm, S1 normal heart sound present, S2 normal heart sound present and No murmurs present (Cardio) RHYTHM: regular rhythm HEART SOUNDS: S1 normal heart sound present and S2 normal heart sound present GI: COMMON NORMALS: Normal to inspection, nondistended, normoactive bowel sounds present, Soft to palpation and non-tender PALPATION: Yes Soft to palpation Extremity: COMMON NORMALS: no joint enlargement GENERAL: Yes edema (3+ BL LE) Neuro: COMMON NORMALS: patient oriented x3 and moves all extremities SENSORIUM/ORIENTATION: Yes alert Skin: OTHER: Improving bilateral papular/patchy erythema at lower legs overlying edema. No diffuse erythema. No warmth to touch. No drainage. Urinary Catheter Management: Fox: Cath Placed During This Visit: yes Reason for Continuing Indwelling Catheter: Accurate Measurement of Urinary Output in Critically Ill Patients Urinary Catheter Date of Insertion: 12/10/22 Urinary Catheter Time of Insertion: 21:00 Data 12/12/22 02:03 12/12/22 02:03 A&P Assessment and plan (1) Hypertensive emergency: (2) Acute CHF: (3) Bilateral edema of lower extremity: (4) NSTEMI (non-ST elevated myocardial infarction): (5) Pulmonary edema: (6) Morbid obesity: Plan Acute CHF exacerbation: Diuresing rather briskly. Urine output charted as 12 L. Given very brisk diuresis we will recheck chemistry this afternoon. At risk of electrolyte imbalance. Monitor on telemetry. Check BMP, magnesium. Additional BMP requested for the morning. Reviewed I&O. Continue diuresis for acute decompensation of systolic CHF. Discussed with her and her family results of TTE with finding of reduced ejection fraction, down to 43%. Additionally with noted severe aortic stenosis. Discussed with her reviewed renal function, creatinine with slight worsening up to 1.1. Reassess renal function, requested. Possible NSTEMI: Continues with cardiac medications, continues on heparin drip for now. PTT noted supratherapeutic, to 212.5, however, drawn from the same arm after a pause. Cannot be drawn from the right arm with history of mastectomy. Cannot be drawn from lower extremities. We will redraw again at 1730, if back in therapeutic range, potentially switch to Lovenox for anticoagulation over 72 hours presentation. She remains chest pain-free. Discussed with her and family for now stress test delayed, will need additional assessment for possible CAD, stress test once volume optimized, able to lie down to tolerate the test and/or additional assessment by angiography if needed. Abnormal TSH: On my assessment appears to be subclinical hypothyroidism. Free T4 noted normal at 1.26. Hypertensive urgency: Blood pressures with improvement, but still rather elevated. At risk of severe worsening hypertension, currently on nitroglycerin drip. Requiring close monitoring while on the drip. Avoid hypotension. With possible NSTEMI, at risk of cardiac ischemia, CVA, other complications secondary to severe hypertension. With CHF exacerbation, for now continue nitro drip but may be able to wean off of it shortly. Continue diuretic. Monitor blood pressure. Will add amlodipine, Cont spironolactone. Cardiac murmur, cardiac echo reviewed, as above MATILDE: Mild, creatinine up to 1.1. Reassess chemistry. Avoid NSAID. May portend poor prognosis in case not tolerating diuresis. Attestations Medical Necessity Statement*: Continue admission for assessment management of decompensated systolic CHF, with noted severe aortic stenosis, for now not Able to tolerate additional assessment following possible NSTEMI. With very brisk diuresis required close monitoring of electrolytes and renal function with mild MATILDE, creatinine up to 1.1. Diagnoses Hypertensive emergency I16.1 Acute CHF I50.9 Bilateral edema of lower extremity R60.0 NSTEMI (non-ST elevated myocardial infarction) I21.4 Pulmonary edema J81.1 Morbid obesity E66.01
[2022-12-12] MEDS: spironolactone 25 mg Tablet PO (17:44)
[2022-12-12] MEDS: pantoprazole 40 mg SDV IVP (17:45)
[2022-12-12 17:50] LABS: Partial Thromboplastin Time 41.4 SECONDS (23.9-36.7)
[2022-12-12 17:53] LABS: Anion Gap 13.7 (5-19); Blood Urea Nitrogen 12 mg/dL (6-20); Calcium 9.4 mg/dL (8.5-10.5); Carbon Dioxide 30 mmol/L (22-29); Chloride 97 mmol/L (98-107); Glomerular Filtration Rate 51.4 mL/min (90-130); Glucose 108 mg/dL (65-115); Magnesium 1.8 mg/dL (1.7-2.3); Osmolality Calculated 284 mOsm/kg (285-295); Potassium 3.7 mmol/L (3.5-5.1); Sodium 137 mmol/L (136-145)
--- NOTE | 2022-12-12 18:12 | PC.NURSE ---
Dr. Anne notified of PTT redraw result. Orders to follow.
[2022-12-12] MEDS: enoxaparin 150 mg/mL Syringe 130 MG SUBCUT (18:35)
[2022-12-12] MEDS: atorvastatin 40 mg Tablet PO (20:44)
[2022-12-13] VITALS (8 sets, daily range): BP systolic 125–138; BP diastolic 74–87; PULSE 78–90; RESP 14–19; TEMP 36.9–37.2; O2SAT 94–96
[2022-12-13] MEDS: enoxaparin 150 mg/mL Syringe 130 MG SUBCUT ×2 (04:24→17:30)
[2022-12-13] MEDS: carvedilol 3.125 mg Tablet PO ×2 (04:25→17:27)
[2022-12-13 05:17] LABS: Basophils % 0.6 %; Eosinophils # 0.2 10^3/uL (0.0-0.8); Eosinophils % 4.2 %; Hematocrit 43.2 % (37.0-47.0); Hemoglobin 13.2 g/dL (11.5-15.3); Lymphocytes # 1.2 10^3/uL (0.8-4.8); Lymphocytes % 24.9 %; Mean Corpuscular HGB Conc 30.6 g/dL (30.0-36.0); Mean Corpuscular Hemoglobin 24.8 pg (28.0-34.0); Mean Corpuscular Volume 81.1 fl (81-99); Mean Platelet Volume 10.3 fL (7.4-10.4); Monocytes # 0.6 10^3/uL (0.2-0.9); Neutrophils # 2.73 10^3/uL (1.8-7.7); Neutrophils % 57.3 %; Nucleated Red Blood Cells % 0 %; Platelet Count 236 10^3/cmm (130-400); Red Blood Count 5.33 10^6/uL (4.1-5.3); Red Cell Distribution Width 17.5 % (12.1-15.1); White Blood Count 4.8 10^3/uL (4.0-10.0)
[2022-12-13 05:38] LABS: Blood Urea Nitrogen 12 mg/dL (6-20); Calcium 9.3 mg/dL (8.5-10.5); Carbon Dioxide 31 mmol/L (22-29); Chloride 96 mmol/L (98-107); Glomerular Filtration Rate 51.4 mL/min (90-130); Glucose 100 mg/dL (65-115); Osmolality Calculated 286 mOsm/kg (285-295); Sodium 138 mmol/L (136-145)
[2022-12-13 05:46] LABS: Anion Gap 14.9 (5-19); Potassium 3.9 mmol/L (3.5-5.1)
[2022-12-13] MEDS: FUROsemide 10 mg/mL SDV 4mL 40 MG IVP ×2 (10:02→20:32)
[2022-12-13] MEDS: amlodipine 5 mg Tablet PO (10:03)
[2022-12-13] MEDS: aspirin 81 mg EC Tablet PO (10:03)
[2022-12-13] MEDS: pantoprazole 40 mg SDV IVP (17:28)
[2022-12-13] MEDS: spironolactone 25 mg Tablet PO (17:28)
--- NOTE | 2022-12-13 19:33 | PM.PN ---
Subjective Subjective: She states she is doing okay, slightly better than yesterday. Slight improvement in edema. Tried lying down and is able to lay down a little bit further but still not flat. Vitals/I&O/Wt Last Vital Signs Temp 98.6 F 12/13/22 18:21 Pulse 90 12/13/22 18:21 Resp 14 12/13/22 11:48 BP 131/77 12/13/22 18:21 Pulse Ox 94 12/13/22 18:21 O2 Del Method 12/13/22 18:21 O2 Flow Rate 2 12/13/22 18:21 12/13/22 12/13/22 12/13/22 06:59 14:59 22:59 Intake Total 240 / 1262 1330 / 1330 600 / 1930 Output Total 3100 / 5850 2049 220 / 2270 Balance -2860 / -4588 -720 / -720 380 / -340 Weight last 48 hrs Weight 130.379 kg Physical Exam Const: COMMON NORMALS: patient oriented x3 and alert GENERAL APPEARANCE: cooperative NUTRITIONAL APPEARANCE: obese ORIENTATION/CONSCIOUSNESS: Yes awake HENMT: COMMON NORMALS: oropharynx normal Resp: COMMON NORMALS: normal respiratory effort and clear to auscultation bilaterally AUSCULTATION: clear to auscultation bilaterally Cardio: COMMON NORMALS: regular rhythm, S1 normal heart sound present, S2 normal heart sound present and No murmurs present (Cardio) RHYTHM: regular rhythm HEART SOUNDS: S1 normal heart sound present and S2 normal heart sound present GI: COMMON NORMALS: Normal to inspection, nondistended, normoactive bowel sounds present, Soft to palpation and non-tender PALPATION: Yes Soft to palpation Extremity: COMMON NORMALS: no joint enlargement GENERAL: Yes edema (3+ BL LE) Neuro: COMMON NORMALS: patient oriented x3 and moves all extremities SENSORIUM/ORIENTATION: Yes alert Skin: OTHER: Improving bilateral papular/patchy erythema at lower legs overlying edema. No diffuse erythema. No warmth to touch. No drainage. Urinary Catheter Management: Fox: Cath Placed During This Visit: yes Reason for Continuing Indwelling Catheter: Accurate Measurement of Urinary Output in Critically Ill Patients Urinary Catheter Date of Insertion: 12/10/22 Urinary Catheter Time of Insertion: 21:00 Data 12/13/22 04:42 12/13/22 04:42 A&P Assessment and plan (1) Hypertensive emergency: (2) Acute CHF: (3) Bilateral edema of lower extremity: (4) NSTEMI (non-ST elevated myocardial infarction): (5) Pulmonary edema: (6) Morbid obesity: Plan Acute systolic CHF exacerbation: Requiring oxygen 2 L nasal cannula. Severe exacerbation of CHF with severe edema, orthopnea, hypoxia. Continue IV diuresis. Monitor electrolytes. Potassium noted 3.9. Noted creatinine has stayed at 1.1. BUN is 12. Follow-up chemistry requested. We will check magnesium in the morning as well. She still cannot lie down flat for stress test or if needing angiogram. Continue diuresis. At risk of electrolyte imbalance. Monitor on telemetry. Recheck BMP, magnesium. Additional BMP requested for the morning. Reviewed I&O. Continue diuresis for acute decompensation of systolic CHF. Discussed with her and her family results of TTE with finding of reduced ejection fraction, down to 43%. Additionally with noted severe aortic stenosis. Discussed with her reviewed renal function, creatinine with slight worsening up to 1.1. Reassess renal function, requested. Dominique for accurate I&O for now. Possible NSTEMI: Continues with cardiac medications, continues on heparin drip for now. PTT noted supratherapeutic, to 212.5, however, drawn from the same arm after a pause. Cannot be drawn from the right arm with history of mastectomy. Cannot be drawn from lower extremities. We will redraw again at 1730, if back in therapeutic range, potentially switch to Lovenox for anticoagulation over 72 hours presentation. She remains chest pain-free. Discussed with her and family for now stress test delayed, will need additional assessment for possible CAD, stress test once volume optimized, able to lie down to tolerate the test and/or additional assessment by angiography if needed. Abnormal TSH: On my assessment appears to be subclinical hypothyroidism. Free T4 noted normal at 1.26. Hypertensive urgency: Blood pressures with improvement, but still rather elevated. At risk of severe worsening hypertension, currently on nitroglycerin drip. Requiring close monitoring while on the drip. Avoid hypotension. With possible NSTEMI, at risk of cardiac ischemia, CVA, other complications secondary to severe hypertension. With CHF exacerbation, for now continue nitro drip but may be able to wean off of it shortly. Continue diuretic. Monitor blood pressure. Amlodipine, Cont spironolactone. Cardiac murmur, cardiac echo reviewed, as above MATILDE: Mild, creatinine up to 1.1. Reassess chemistry. Avoid NSAID. May portend poor prognosis in case not tolerating diuresis. Attestations Medical Necessity Statement*: Continue admission for assessment management of decompensated CHF. Diagnoses Hypertensive emergency I16.1 Acute CHF I50.9 Bilateral edema of lower extremity R60.0 NSTEMI (non-ST elevated myocardial infarction) I21.4 Pulmonary edema J81.1 Morbid obesity E66.01
[2022-12-13] MEDS: atorvastatin 40 mg Tablet PO (20:32)
[2022-12-14] VITALS (9 sets, daily range): BP systolic 104–134; BP diastolic 45–82; PULSE 74–91; RESP 14–24; TEMP 36.2–37.3; O2SAT 91–95
[2022-12-14 03:59] LABS: Basophils % 0.7 %; Eosinophils # 0.2 10^3/uL (0.0-0.8); Eosinophils % 3.5 %; Hematocrit 43.5 % (37.0-47.0); Lymphocytes # 1.5 10^3/uL (0.8-4.8); Lymphocytes % 28.1 %; Mean Corpuscular HGB Conc 29.9 g/dL (30.0-36.0); Mean Corpuscular Hemoglobin 24.6 pg (28.0-34.0); Mean Corpuscular Volume 82.2 fl (81-99); Monocytes # 0.8 10^3/uL (0.2-0.9); Monocytes % 14.2 %; Neutrophils # 2.86 10^3/uL (1.8-7.7); Neutrophils % 53.3 %; Nucleated Red Blood Cells % 0 %; Platelet Count 228 10^3/cmm (130-400); Red Blood Count 5.29 10^6/uL (4.1-5.3); Red Cell Distribution Width 17.5 % (12.1-15.1); White Blood Count 5.4 10^3/uL (4.0-10.0)
[2022-12-14 04:15] LABS: Anion Gap 15.6 (5-19); Blood Urea Nitrogen 13 mg/dL (6-20); Calcium 9.3 mg/dL (8.5-10.5); Carbon Dioxide 29 mmol/L (22-29); Chloride 97 mmol/L (98-107); Glomerular Filtration Rate 51.4 mL/min (90-130); Glucose 106 mg/dL (65-115); Magnesium 2.1 mg/dL (1.7-2.3); Osmolality Calculated 287 mOsm/kg (285-295); Potassium 3.6 mmol/L (3.5-5.1); Sodium 138 mmol/L (136-145)
[2022-12-14] MEDS: enoxaparin 150 mg/mL Syringe 130 MG SUBCUT ×2 (05:52→18:02)
[2022-12-14] MEDS: carvedilol 3.125 mg Tablet PO ×2 (05:53→18:03)
[2022-12-14] MEDS: aspirin 81 mg EC Tablet PO (09:56)
[2022-12-14] MEDS: amlodipine 5 mg Tablet PO (09:56)
[2022-12-14] MEDS: FUROsemide 10 mg/mL SDV 4mL 40 MG IVP ×2 (09:56→21:41)
--- NOTE | 2022-12-14 13:12 | PM.CONSULT ---
Providers/Reason For Consult Consulting Physician/Specialty*: LEE ANN Valverde MD/cardiology Reason for Consult*: Patient with a severe aortic valve stenosis and heart failure Requesting Physician: Dr. Anne Attending Physician: Helder Anne History of Present Illness History of Present Illness Jalyn Sam is a 57 year old female is admitted to hospital with complaints of progressive shortness of breath. She was found to have features of congestive heart failure. She also was found to have severe aortic valve stenosis by echocardiogram. Cardiology consult is requested for further cardiac evaluation recommendations. This patient apparently has been in her baseline state of health up until a month ago when she was having shortness of breath and upper respiratory infection-like symptoms. She was seen at the urgent care clinic for these complaints. She was prescribed some antibiotics and cough medication. According the patient, the symptoms did not get any better. She continues to have the shortness of breath and also leg swelling. Because of the worsening of the symptoms, she was brought to the hospital. She has no chest pain or palpitation. No fever or chills. No significant cough. She was told to have a heart murmur a month ago at the urgent care clinic. According the patient, she been getting tired and short of breath with activities over the last several months. She might have gained around 60 pounds also within the last 1 year. She has no chest pain. No palpitations, dizziness or syncopal episode. No other specific complaints. Her son was born with some congenital heart defects. He had a cardiac transplant at the age of 10 days. He lived up to the age of 21. He had an LVAD around this time? Apparently the pump get clogged and he did not make it. Her father had a myocardial infarction in his 40s. 1 brother had a myocardial infarction in his 50s. I am the sister had a myocardial infarction in her 50s as well. Denies any smoking abuse, alcohol abuse or any substance abuse. Review of Systems Narrative: CONSTITUTIONAL: No fever or chills. EYES: No blurring of vision or other visual disturbances lately. ENT: No hoarseness of voice, auditory disturbances or sore throat. CARDIOVASCULAR: As mentioned above. RESPIRATORY: Increasing shortness of breath GASTROINTESTINAL: No hematemesis or melena. GENITOURINARY: No dysuria or hematuria. INTEGUMENTARY: No skin rashes or history of skin cancer. NEURO: No transient ischemic attacks or amaurosis. PSYCHIATRIC: No history of psychosis or major depression. HEMATOLOGIC: No bleeding disorders or significant anemia. ENDOCRINE: No history of polyuria or polydipsia. MUSCULOSKELETAL: No recent joint pain or swelling. ALLERGY/IMMUNOLOGY: As mentioned above. Medications/Allergies Home Medications Medication Instructions Recorded Confirmed Last Taken Type albuterol sulfate 90 mcg/actuation 2 puff inhalation Q6H PRN 10/29/22 12/10/22 Unknown Rx aerosol inhaler (Ventolin HFA) shortness of breath or wheezing #8.5 grams promethazine-DM 6.25 mg-15 mg/5 mL 5 ml PO Q6H PRN cough #200 mL 10/29/22 12/10/22 Unknown Rx oral syrup furosemide 20 mg tablet (Lasix) 20 mg PO DAILY #14 tabs 12/09/22 12/10/22 12/10/22 Rx sulfamethoxazole 800 1 tab PO BID 10 days #20 tabs 12/09/22 12/10/22 12/10/22 Rx mg-trimethoprim 160 mg tablet (Bactrim DS) diclofenac sodium 75 mg 75 mg PO BID 12/10/22 12/10/22 12/10/22 History tablet,delayed release magnesium 200 mg tablet 200 mg PO DAILY 12/10/22 12/10/22 Unknown History zinc acetate 50 mg (zinc) capsule 50 mg PO DAILY 12/10/22 12/10/22 Unknown History Allergies Allergy/AdvReac Type Severity Reaction Status Date / Time No Known Allergies Allergy Unverified 12/09/22 12:43 Current Medications Generic Name Dose Route Start Last Admin Trade Name Chrisq PRN Reason Stop Dose Admin Amlodipine Besylate 5 mg 12/11/22 15:25 12/14/22 09:56 Amlodipine 5 Mg Tablet PO 5 mg DAILY GEORGE Administration Aspirin 81 mg 12/10/22 18:55 12/14/22 09:56 Aspirin 81 Mg Ec Tablet PO 81 mg DAILY GEORGE Administration Atorvastatin Calcium 40 mg 12/10/22 21:00 12/13/22 20:32 Atorvastatin 40 Mg Tablet PO 40 mg BEDTIME GEORGE Administration Carvedilol 3.125 mg 12/10/22 19:00 12/14/22 05:53 Carvedilol 3.125 Mg Tablet PO 3.125 mg Q12H GEORGE Administration Enoxaparin Sodium 130 mg 12/12/22 18:30 12/14/22 05:52 Enoxaparin 150 Mg/Ml Syringe SUBCUT 130 mg Q12H GEORGE Administration Furosemide 40 mg 12/10/22 21:00 12/14/22 09:56 Furosemide 10 Mg/Ml Sdv 4ml IVP 40 mg Q12H GEORGE Administration Pantoprazole Sodium 40 mg 12/10/22 18:54 12/13/22 17:28 Pantoprazole 40 Mg Sdv IVP 40 mg Q24H GEORGE Administration Spironolactone 25 mg 12/10/22 18:54 12/13/22 17:28 Spironolactone 25 Mg Tablet PO 25 mg Q24H GEORGE Administration PFSH Acute PFSH: Medical History History of breast cancer Hypertension Surgical History History of mastectomy Family History Sister CAD (coronary artery disease) Hypertension Brother CAD (coronary artery disease) Hypertension Social History Smoking and tobacco status: never smoked Alcohol intake: never Vitals/I&O/Wt Last Vital Signs Temp 98.1 F 12/14/22 12:00 Pulse 85 12/14/22 12:00 Resp 14 12/14/22 12:00 BP 104/77 12/14/22 12:00 Pulse Ox 95 12/14/22 12:00 O2 Del Method 12/14/22 12:00 O2 Flow Rate 2 12/14/22 04:00 12/13/22 12/14/22 12/14/22 22:59 06:59 14:59 Intake Total 600 / 1930 / 1959 480 / 480 Output Total 1420 / 3470 1325 / 4795 1200 / 1200 Balance -820 / -1540 -1295 / -2835 -720 / -720 Weight last 48 hrs Weight 287 lb 7 oz Physical Exam Narrative: GENERAL: The patient is alert and oriented times three. Not in any acute distress. Moderately obese HEENT: No significant pallor, icterus or lymphadenopathy.Oral cavity: There are no mucous membrane lesions. NECK: Trachea appears to be central. No masses noted. No JVD or thyromegaly appreciated. RESPIRATORY: Chest is symmetrical. No intercostals muscle retraction or any accessory muscle activation. There is no chest wall tenderness. Breath sounds are heard bilaterally. No rales or rhonchi heard. No evidence of any consolidation. BREASTS: Deferred. HEART: Patient has an ejection Stolle murmur grade 4/6 in the aortic area. There is some transmitted to the carotids. Second heart sound is muffled. No S3 or S4. ABDOMEN: No vessel pulsations or distention. No tenderness. No organomegaly appreciated. Bowel sounds are normally heard. : Deferred. RECTAL: Deferred. LYMPHATIC: No lymphadenopathy noted in the neck. EXTREMITIES: Trace edema with no cyanosis MUSCULOSKELETAL: No acute joint deformities or swelling SKIN: There are no significant rashes or ecchymosis NEUROPSYCHIATRIC: The patient is alert and oriented x3. Appears to be in a good mood. No tremors or rigidity noted. Urinary Catheter Management: Fox: Cath Placed During This Visit: yes Reason for Continuing Indwelling Catheter: Acute Urinary Retention or Obstruction Urinary Catheter Date of Insertion: 12/10/22 Urinary Catheter Time of Insertion: 21:00 Data 12/14/22 03:30 12/14/22 03:30 Other Labs: Laboratory Last Values WBC 5.4 10^3/uL (4.0-10.0) 12/14/22 03:30 RBC 5.29 10^6/uL (4.1-5.3) 12/14/22 03:30 Hgb 13.0 g/dL (11.5-15.3) 12/14/22 03:30 Hct 43.5 % (37.0-47.0) 12/14/22 03:30 MCV 82.2 fl (81-99) 12/14/22 03:30 MCH 24.6 pg (28.0-34.0) L 12/14/22 03:30 MCHC 29.9 g/dL (30.0-36.0) L 12/14/22 03:30 RDW 17.5 % (12.1-15.1) H 12/14/22 03:30 Plt Count 228 10^3/cmm (130-400) 12/14/22 03:30 MPV 10.0 fL (7.4-10.4) 12/14/22 03:30 Neut % (Auto) 53.3 % 12/14/22 03:30 Lymph % (Auto) 28.1 % 12/14/22 03:30 [place] % (Auto) 14.2 % 12/14/22 03:30 Eos % (Auto) 3.5 % 12/14/22 03:30 Baso % (Auto) 0.7 % 12/14/22 03:30 Neut # (Auto) 2.86 10^3/uL (1.8-7.7) 12/14/22 03:30 Lymph # (Auto) 1.5 10^3/uL (0.8-4.8) 12/14/22 03:30 [place] # (Auto) 0.8 10^3/uL (0.2-0.9) 12/14/22 03:30 Eos # (Auto) 0.2 10^3/uL (0.0-0.8) 12/14/22 03:30 Baso # (Auto) 0.0 10^3/uL (0.0-0.1) 12/14/22 03:30 Nucleated RBC % (auto) 0 % 12/14/22 03:30 Nucleated RBCs # 0.0 /100WBC 12/14/22 03:30 APTT 41.4 SECONDS (23.9-36.7) H D 12/12/22 17:25 Sodium 138 mmol/L (136-145) 12/14/22 03:30 Potassium 3.6 mmol/L (3.5-5.1) 12/14/22 03:30 Chloride 97 mmol/L (98-107) L 12/14/22 03:30 Carbon Dioxide 29 mmol/L (22-29) 12/14/22 03:30 Anion Gap 15.6 (5-19) 12/14/22 03:30 BUN 13 mg/dL (6-20) 12/14/22 03:30 Creatinine 1.1 mg/dL (0.5-0.9) H 12/14/22 03:30 GFR Calculation 51.4 mL/min (90-130) L 12/14/22 03:30 Glucose 106 mg/dL (65-115) 12/14/22 03:30 Estimat Average Glucose 97 12/10/22 15:59 Hemoglobin A1c 5.0 % (4.0-6.0) 12/10/22 15:59 Calculated Osmolality 287 mOsm/kg (285-295) 12/14/22 03:30 Calcium 9.3 mg/dL (8.5-10.5) 12/14/22 03:30 Phosphorus 4.0 mg/dL (2.5-4.5) 12/11/22 03:13 Magnesium 2.1 mg/dL (1.7-2.3) 12/14/22 03:30 Troponin T Baseline 86 ng/L (0-10) H 12/10/22 15:59 Troponin T 120 Minute 99.95 ng/L (0-10) H 12/10/22 18:06 Delta Troponin T 13.95 ABS# (0-10) H* 12/10/22 18:06 Troponin T Hi Sens 6Hr 90.90 ng/L (0-10) H 12/10/22 21:58 Troponin T Hi Sens 6Hr Delta 4.90 ng/L (0-12) 12/10/22 21:58 NT-Pro-B Natriuret Pep 05736 pg/mL (0-125) H 12/11/22 03:13 Triglycerides 84 mg/dL (0-150) 12/10/22 15:59 Cholesterol 130 mg/dL (0-200) 12/10/22 15:59 LDL Cholesterol, Calc 74 mg/dL (50-129) 12/10/22 15:59 HDL Cholesterol 39 mg/dL (60-100) L 12/10/22 15:59 LDL/HDL Ratio 1.90 RATIO (0.00-3.22) 12/10/22 15:59 Cholesterol/HDL Ratio 3.33 mg/dL (0.0-4.40) 12/10/22 15:59 TSH 4.30 uIU/mL (0.27-4.20) H 12/10/22 15:59 Free T4 1.26 ng/dL (0.82-1.77) 12/11/22 03:24 Urine Color Colorless (Yellow) 12/10/22 22:00 Urine Appearance Clear (CLEAR) 12/10/22 22:00 Urine pH 8 (5-7) H 12/10/22 22:00 Ur Specific [place] 1.010 (1.005-1.030) 12/10/22 22:00 Urine Protein Neg (Negative) 12/10/22 22:00 Urine Glucose (UA) Norm (Normal) 12/10/22 22:00 Urine Ketones Negative (Negative) 12/10/22 22:00 Urine Blood Neg (Negative) 12/10/22 22:00 Urine Nitrate Negative (Negative) 12/10/22 22:00 Urine Bilirubin Neg (Negative) 12/10/22 22:00 Prot Sulfosalicylic Acd Negative (Negative) 12/10/22 22:00 Urine Urobilinogen Neg mg/dL (Negative) 12/10/22 22:00 Ur Leukocyte Esterase Negative (Negative) 12/10/22 22:00 Echo: My impression: Echocardiogram done on 12/11/2022 Diffuse hypokinesia of the left ventricular ejection fraction of ?43%. ?Mild to moderate concentric ventricular hypertrophy. ?Severe aortic valve stenosis, mean gradient 50.6 mmHg, MACO 0.52 ?cm squared.? Peak gradient of 128 mmHg and a peak velocity of 5.48 m/s. ?Trace to mild aortic valve regurgitation. ?Mild mitral valve regurgitation. Mild mitral annular ?calcification. ?Could not calculate the PA pressure because of the poor Doppler ?signals ?There is no pericardial effusion. ?There are no intracardiac masses. ?No similar previous studies are available for comparison EKG 1: My Interpretation: Normal sinus rhythm with a poor R wave progression. Q waves in the anterolateral region, suggestive of old anterolateral wall myocardial infarction. Q waves in the inferior suggesting of old inferior wall ME. A&P Assessment and plan (1) Congestive heart failure: Most likely the heart rate related to left ventricular ejection fraction dysfunction and the severe aortic valve stenosis. Possibility of underlying coronary artery disease causing LV dysfunction also is a consideration. Patient has a strong family history for premature atherosclerotic heart disease. (2) Bilateral edema of lower extremity: Most likely this is related to the heart failure, recent weight gain and obesity. She may be carefully treated with IV diuretics and other symptomatic measures (3) Severe aortic valve stenosis: Patient has severe aortic valve stenosis. She may benefit from an aortic valve replacement. Per prior to this, she needed a cardiac catheterization to evaluate the coronary arteries. (4) Elevated blood pressure reading: Her blood pressure will be closely monitored on telemetry. I may hold off on medications at this point. Plan Patient seems to have a significant deterioration of the functional status. She requires the cardiac catheterization to further evaluate coronary arteries and also the hemodynamics. The need for the study was discussed with the patient. Possible risk and benefits were discussed. The risk of bleeding, hematoma, vascular injury, myocardial infarction, myocardial perforation, malignant cardiac arrhythmias ,CVA, renal failure and other concomitant complications were explained in detail. Patient understood this well and consented to proceed. We may go ahead and do schedule this procedure as early as possible in the hospital Consult Attestations Medical Necessity Statement: Patient requires continued hospital stay for close monitoring and further management Coding Level of Care Code 68619 Diagnoses Congestive heart failure I50.9 Bilateral edema of lower extremity R60.0 Severe aortic valve stenosis I35.0 Elevated blood pressure reading R03.0
[2022-12-14] MEDS: spironolactone 25 mg Tablet PO (18:03)
[2022-12-14] MEDS: pantoprazole 40 mg SDV IVP (18:03)
--- NOTE | 2022-12-14 20:19 | P.PN_ITS ---
Subjective Subjective: Overall she is improving. Denies chest pain. Swelling is decreasing. Has been having pain in her left knee for which she is being set up with orthopedics appointment. Plan for MRI. Feels she had injured it at work having to put weight on it while her leg was in a sideways position. Vitals/I&O/Wt Last Vital Signs Temp 98.8 F 12/14/22 16:00 Pulse 84 12/14/22 16:00 Resp 14 12/14/22 16:00 BP 122/80 12/14/22 16:00 Pulse Ox 94 12/14/22 16:00 O2 Del Method 12/14/22 16:00 O2 Flow Rate 2 12/14/22 04:00 12/14/22 12/14/22 12/14/22 06:59 14:59 22:59 Intake Total 30 / 1960 480 / 480 Output Total 1325 / 4795 1200 / 1200 300 / 1500 Balance -1295 / -2835 -720 / -720 -300 / -1020 Physical Exam Narrative: Accompanied by family. Const: COMMON NORMALS: patient oriented x3 and alert GENERAL APPEARANCE: cooperative NUTRITIONAL APPEARANCE: obese ORIENTATION/CONSCIOUSNESS: Yes awake HENMT: COMMON NORMALS: oropharynx normal Resp: COMMON NORMALS: normal respiratory effort and clear to auscultation b ilaterally AUSCULTATION: clear to auscultation bilaterally Cardio: COMMON NORMALS: regular rhythm, S1 normal heart sound present, S2 normal heart sound present and No murmurs present (Cardio) RHYTHM: regular rhythm HEART SOUNDS: S1 normal heart sound present and S2 normal heart sound present GI: COMMON NORMALS: Normal to inspection, nondistended, normoactive bowel sounds present, Soft to palpation and non-tender PALPATION: Yes Soft to palpation Extremity: COMMON NORMALS: no joint enlargement GENERAL: Yes edema (3+ BL LE) Neuro: COMMON NORMALS: patient oriented x3 and moves all extremities SENSORIUM/ORIENTATION: Yes alert Skin: OTHER: Improving bilateral papular/patchy erythema at lower legs overlying edema. No diffuse erythema. No warmth to touch. No drainage. Urinary Catheter Management: Fox: Cath Placed During This Visit: yes Reason for Continuing Indwelling Catheter: Accurate Measurement of Urinary Output in Critically Ill Patients Urinary Catheter Date of Insertion: 12/10/22 Urinary Catheter Time of Insertion: 21:00 Data 12/14/22 03:30 12/14/22 03:30 A&P Assessment and plan (1) Hypertensive emergency: (2) Acute CHF: (3) Bilateral edema of lower extremity: (4) NSTEMI (non-ST elevated myocardial infarction): (5) Pulmonary edema: (6) Morbid obesity: Plan Acute systolic CHF exacerbation: Improving. She can now lay flat. Initially consideration of stress test, but requested cardiology consultation. On discussion with cardiology will do better and safer with proceeding with angiography. Discussed with her and her visitor. Requiring oxygen 2 L nasal cannula. Severe exacerbation of CHF with severe e lisa, orthopnea, hypoxia. Continue IV diuresis. Monitor electrolytes. Requested chemistry, magnesium. At risk of electrolyte imbalance. Monitor on telemetry. Recheck BMP, magnesium. Additional BMP requested for the morning. Reviewed I&O. Continue diuresis for acute decompensation of systolic CHF. Discussed with her and her family results of TTE with finding of reduced ejection fraction, down to 43%. Additionally with noted severe aortic stenosis. Discussed with her reviewed renal function, creatinine with slight worsening up to 1.1. Reassess renal function, requested. Dominique for accurate I&O for now. Possible NSTEMI: Continues with cardiac medications, continues on heparin drip for now. PTT noted supratherapeutic, to 212.5, however, drawn from the same arm after a pause. Cannot be drawn from the right arm with history of mastectomy. Cannot be drawn from lower extremities. We will redraw again at 1730, if back in therapeutic range, potentially switch to Lovenox for anticoagulation over 72 hours presentation. She remains chest pain-free. Discussed with her and family for now stress test delayed, will need additional assessment for possible CAD, stress test once volume optimized, able to lie down to tolerate the test and/or additional assessment by angiography if needed. Abnormal TSH: On my assessment appears to be subclinical hypothyroidism. Free T4 noted normal at 1.26. Hypertensive urgency: Blood pressures with improvement, but still rather elevated. At risk of severe worsening hypertension, currently on nitroglycerin drip. Requiring close monitoring while on the drip. Avoid hypotension. With possible NSTEMI, at risk of cardiac ischemia, CVA, other complications secondary to severe hypertension. With CHF exacerbation, for now continue nitro drip but may be able to wean off of it shortly. Continue diuretic. Monitor blood pressure. Amlodipine, Cont spironolactone. Cardiac murmur, cardiac echo reviewed, as above MATILDE: Mild, creatinine up to 1.1. Reassess chemistry. Avoid NSAID. May portend poor prognosis in case not tolerating diuresis. Attestations Medical Necessity Statement*: Continue admission for assessment of acute CHF, further assessment with coronary coronary angiography with new finding of cardiomyopathy, decreased EF, severe aortic stenosis Diagnoses Hypertensive emergency I16.1 Acute CHF I50.9 Bilateral edema of lower extremity R60.0 NSTEMI (non-ST elevated myocardial infarction) I21.4 Pulmonary edema J81.1 Morbid obesity E66.01
[2022-12-14] MEDS: atorvastatin 40 mg Tablet PO (21:42)
[2022-12-15] VITALS (11 sets, daily range): BP systolic 108–144; BP diastolic 64–94; PULSE 70–97; RESP 9–24; TEMP 36.7–37.7; O2SAT 93–99
[2022-12-15 04:02] LABS: Blood Urea Nitrogen 16 mg/dL (6-20); Calcium 9.5 mg/dL (8.5-10.5); Carbon Dioxide 28 mmol/L (22-29); Chloride 98 mmol/L (98-107); Glomerular Filtration Rate 46.5 mL/min (90-130); Glucose 114 mg/dL (65-115); Magnesium 2.2 mg/dL (1.7-2.3); Osmolality Calculated 288 mOsm/kg (285-295); Sodium 138 mmol/L (136-145)
[2022-12-15] MEDS: carvedilol 3.125 mg Tablet PO ×2 (06:08→18:16)
[2022-12-15] MEDS: FUROsemide 10 mg/mL SDV 4mL 40 MG IVP ×2 (08:36→20:14)
[2022-12-15] MEDS: aspirin 81 mg EC Tablet PO (08:36)
[2022-12-15] MEDS: amlodipine 5 mg Tablet PO (08:36)
--- NOTE | 2022-12-15 11:33 | PM.PN ---
Subjective Subjective: Patient is feeling better. Breathing seems to be much better. No chest pain or palpitations. No significant arrhythmias on the monitor. No fever or chills. No cough Medications: Medication Review Details: Current Medications Acetaminophen (Acetaminophen 325 Mg Tablet) 650 mg PO Q6H PRN PRN Reason: Mild/Mod Pain Or Temp >/= 101 Amlodipine Besylate (Amlodipine 5 Mg Tablet) 5 mg PO DAILY [facility] Last Admin: 12/15/22 08:36 Dose: 5 mg Aspirin (Aspirin 81 Mg Ec Tablet) 81 mg PO DAILY [facility] Last Admin: 12/15/22 08:36 Dose: 81 mg Aspirin (Aspirin 325 Mg Tablet) 325 mg PO ONCE ONE Stop: 12/15/22 12:31 Atorvastatin Calcium (Atorvastatin 40 Mg Tablet) 40 mg PO BEDTIME [facility] Last Admin: 12/14/22 21:42 Dose: 40 mg Carvedilol (Carvedilol 3.125 Mg Tablet) 3.125 mg PO Q12H [facility] Last Admin: 12/15/22 06:08 Dose: 3.125 mg Diphenhydramine HCl (Diphenhydramine 50 Mg Capsule) 50 mg PO ONCE ONE Stop: 12/15/22 12:31 Enoxaparin Sodium (Enoxaparin 150 Mg/Ml Syringe) 130 mg SUBCUT Q12H [facility] Last Admin: 12/15/22 04:01 Dose: Not Given Furosemide (Furosemide 10 Mg/Ml Sdv 4ml) 40 mg IVP Q12H [facility] Last Admin: 12/15/22 08:36 Dose: 40 mg Sodium Chloride (Sodium Chloride 0.9%) 1,000 mls @ 50 mls/hr IV .Q20H ONE Stop: 12/16/22 08:29 Ondansetron HCl (Ondansetron 2 Mg/Ml Sdv 2 Ml) 4 mg IVP Q8H PRN PRN Reason: vomiting, or N/V if npo Pantoprazole Sodium (Pantoprazole 40 Mg Sdv) 40 mg IVP Q24H [facility] Last Admin: 12/14/22 18:03 Dose: 40 mg Spironolactone (Spironolactone 25 Mg Tablet) 25 mg PO Q24H [facility] Last Admin: 12/14/22 18:03 Dose: 25 mg Vitals/I&O/Wt Last Vital Signs Temp 98.1 F 12/15/22 04:00 Pulse 82 12/15/22 09:49 Resp 18 12/15/22 09:49 BP 138/93 12/15/22 09:49 Pulse Ox 94 12/15/22 09:49 O2 Del Method 12/15/22 04:00 O2 Flow Rate 2 12/14/22 04:00 12/14/22 12/15/22 12/15/22 22:59 06:59 14:59 Intake Total 200 / 680 Output Total 300 / 1500 1300 / 2800 Balance -300 / -1020 -1100 / -2120 Weight last 48 hrs Weight 280 lb 3.2 oz Physical Exam Narrative: GENERAL: The patient is alert and oriented times three. Not in any acute distress. HEENT: No significant pallor, icterus or lymphadenopathy.Oral cavity: There are no mucous membrane lesions. NECK: Trachea appears to be central. No masses noted. No JVD or thyromegaly appreciated. RESPIRATORY: Chest is symmetrical. No intercostals muscle retraction or any accessory muscle activation. There is no chest wall tenderness. Breath sounds are heard bilaterally. No rales or rhonchi heard. No evidence of any consolidation. BREASTS: Deferred. HEART: The heart sounds are normal. No S3 or S4. Ejection systolic murmur grade 4/6 in the aortic area. No diastolic murmurs. ABDOMEN: No vessel pulsations or distention. No tenderness. No organomegaly appreciated. Bowel sounds are normally heard. : Deferred. RECTAL: Deferred. LYMPHATIC: No lymphadenopathy noted in the neck. EXTREMITIES: Trace edema with no cyanosis MUSCULOSKELETAL: No acute joint deformities or swelling SKIN: There are no significant rashes or ecchymosis NEUROPSYCHIATRIC: The patient is alert and oriented x3. Appears to be in a good mood. No tremors or rigidity noted. Urinary Catheter Management: Fox: Cath Placed During This Visit: yes Reason for Continuing Indwelling Catheter: Acute Urinary Retention or Obstruction Urinary Catheter Date of Insertion: 12/10/22 Urinary Catheter Time of Insertion: 21:00 Data 12/14/22 03:30 12/15/22 03:00 Other Labs: Laboratory Last Values WBC 5.4 10^3/uL (4.0-10.0) 12/14/22 03:30 RBC 5.29 10^6/uL (4.1-5.3) 12/14/22 03:30 Hgb 13.0 g/dL (11.5-15.3) 12/14/22 03:30 Hct 43.5 % (37.0-47.0) 12/14/22 03:30 MCV 82.2 fl (81-99) 12/14/22 03:30 MCH 24.6 pg (28.0-34.0) L 12/14/22 03:30 MCHC 29.9 g/dL (30.0-36.0) L 12/14/22 03:30 RDW 17.5 % (12.1-15.1) H 12/14/22 03:30 Plt Count 228 10^3/cmm (130-400) 12/14/22 03:30 MPV 10.0 fL (7.4-10.4) 12/14/22 03:30 Neut % (Auto) 53.3 % 12/14/22 03:30 Lymph % (Auto) 28.1 % 12/14/22 03:30 [place] % (Auto) 14.2 % 12/14/22 03:30 Eos % (Auto) 3.5 % 12/14/22 03:30 Baso % (Auto) 0.7 % 12/14/22 03:30 Neut # (Auto) 2.86 10^3/uL (1.8-7.7) 12/14/22 03:30 Lymph # (Auto) 1.5 10^3/uL (0.8-4.8) 12/14/22 03:30 [place] # (Auto) 0.8 10^3/uL (0.2-0.9) 12/14/22 03:30 Eos # (Auto) 0.2 10^3/uL (0.0-0.8) 12/14/22 03:30 Baso # (Auto) 0.0 10^3/uL (0.0-0.1) 12/14/22 03:30 Nucleated RBC % (auto) 0 % 12/14/22 03:30 Nucleated RBCs # 0.0 /100WBC 12/14/22 03:30 APTT 41.4 SECONDS (23.9-36.7) H D 12/12/22 17:25 Sodium 138 mmol/L (136-145) 12/15/22 03:00 Potassium 4.0 mmol/L (3.5-5.1) 12/15/22 03:00 Chloride 98 mmol/L (98-107) 12/15/22 03:00 Carbon Dioxide 28 mmol/L (22-29) 12/15/22 03:00 Anion Gap 16.0 (5-19) 12/15/22 03:00 BUN 16 mg/dL (6-20) 12/15/22 03:00 Creatinine 1.2 mg/dL (0.5-0.9) H 12/15/22 03:00 GFR Calculation 46.5 mL/min (90-130) L 12/15/22 03:00 Glucose 114 mg/dL (65-115) 12/15/22 03:00 Estimat Average Glucose 97 12/10/22 15:59 Hemoglobin A1c 5.0 % (4.0-6.0) 12/10/22 15:59 Calculated Osmolality 288 mOsm/kg (285-295) 12/15/22 03:00 Calcium 9.5 mg/dL (8.5-10.5) 12/15/22 03:00 Phosphorus 4.0 mg/dL (2.5-4.5) 12/11/22 03:13 Magnesium 2.2 mg/dL (1.7-2.3) 12/15/22 03:00 Troponin T Baseline 86 ng/L (0-10) H 12/10/22 15:59 Troponin T 120 Minute 99.95 ng/L (0-10) H 12/10/22 18:06 Delta Troponin T 13.95 ABS# (0-10) H* 12/10/22 18:06 Troponin T Hi Sens 6Hr 90.90 ng/L (0-10) H 12/10/22 21:58 Troponin T Hi Sens 6Hr Delta 4.90 ng/L (0-12) 12/10/22 21:58 NT-Pro-B Natriuret Pep 48887 pg/mL (0-125) H 12/11/22 03:13 Triglycerides 84 mg/dL (0-150) 12/10/22 15:59 Cholesterol 130 mg/dL (0-200) 12/10/22 15:59 LDL Cholesterol, Calc 74 mg/dL (50-129) 12/10/22 15:59 HDL Cholesterol 39 mg/dL (60-100) L 12/10/22 15:59 LDL/HDL Ratio 1.90 RATIO (0.00-3.22) 12/10/22 15:59 Cholesterol/HDL Ratio 3.33 mg/dL (0.0-4.40) 12/10/22 15:59 TSH 4.30 uIU/mL (0.27-4.20) H 12/10/22 15:59 Free T4 1.26 ng/dL (0.82-1.77) 12/11/22 03:24 Urine Color Colorless (Yellow) 12/10/22 22:00 Urine Appearance Clear (CLEAR) 12/10/22 22:00 Urine pH 8 (5-7) H 12/10/22 22:00 Ur Specific [place] 1.010 (1.005-1.030) 12/10/22 22:00 Urine Protein Neg (Negative) 12/10/22 22:00 Urine Glucose (UA) Norm (Normal) 12/10/22 22:00 Urine Ketones Negative (Negative) 12/10/22 22:00 Urine Blood Neg (Negative) 12/10/22 22:00 Urine Nitrate Negative (Negative) 12/10/22 22:00 Urine Bilirubin Neg (Negative) 12/10/22 22:00 Prot Sulfosalicylic Acd Negative (Negative) 12/10/22 22:00 Urine Urobilinogen Neg mg/dL (Negative) 12/10/22 22:00 Ur Leukocyte Esterase Negative (Negative) 12/10/22 22:00 A&P Assessment and plan (1) Congestive heart failure: Most likely the heart rate related to left ventricular diastolic dysfunction and the severe aortic valve stenosis. Possibility of underlying coronary artery disease causing LV dysfunction also is a consideration. Patient has a strong family history for premature atherosclerotic heart disease. (2) Bilateral edema of lower extremity: Most likely this is related to the heart failure, recent weight gain and obesity. She may be carefully treated with IV diuretics and other symptomatic measures. She has significant improvement of the swelling/edema since hospital admission (3) Severe aortic valve stenosis: Patient has severe aortic valve stenosis. She may benefit from an aortic valve replacement. After the cardiac catheterization, a final decision will be made on this (4) Elevated blood pressure reading: Her blood pressure seems to be getting under control. Plan Patient seems to have a significant deterioration of the functional status. She requires the cardiac catheterization to further evaluate coronary arteries and also the hemodynamics. The need for the study was discussed with the patient. Possible risk and benefits were discussed. The risk of bleeding, hematoma, vascular injury, myocardial infarction, myocardial perforation, malignant cardiac arrhythmias ,CVA, renal failure and other concomitant complications were explained in detail. Patient understood this well and consented to proceed. We may go ahead and do schedule this procedure as early as possible in the hospital. Based on the results of the cardiac catheterization, further recommendations will be made Attestations Medical Necessity Statement*: Patient requires continued hospital stay for close monitoring and further management Coding Level of Care Code 87479 Diagnoses Congestive heart failure I50.9 Bilateral edema of lower extremity R60.0 Severe aortic valve stenosis I35.0 Elevated blood pressure reading R03.0
--- NOTE | 2022-12-15 12:09 | PC.NURSE ---
patient leaving floor for angiogram
--- NOTE | 2022-12-15 12:34 | W.PM.OPSUD ---
Surgery/Procedure H&P Update DATE OF PROCEDURE: December 15, 2022 DATE H&P PERFORMED: 12/14/22 H&P UPDATE INFORMATION: I have reviewed H&P completed within last 30 days, I have examined patient prior to procedure and No changes to prior documentation PREOP DIAGNOSIS: Severe aortic valve stenosis/congestive heart failure PRIMARY INDICATION FOR PROCEDURE: Congestive heart failure with a severe aortic valve stenosis. Family history for premature atherosclerotic heart diseas PLANNED PROCEDURE: Operation Date: 12/15/22 13:30 Proposed Procedures p Cardiac Catheterization(Bilateral) - Mayuri Valverde MD PATIENT REASSESSED PRIOR TO SEDATION, WITH NO CHANGE NOTED: Yes PHYSICAL EXAM: alert, oriented x 3, clear to auscultation bilaterally and regular rate & rhythm AIRWAY EVAL/ANESTHESIA PLAN: normal airway, see other exam findings, ASA III, Monitored Anesthesia, Local Anesthesia, Risks, benefits & alternatives of sedation and/or procedure discussed and Patient agrees to continue as planned
--- NOTE | 2022-12-15 13:00 | XACV_ITS ---
Exam Room: [facility] Ht: 180 cm Wt: 127 kg BSA: 2.57 m2 Gender: Female : 1965 Any Known Allergies: No known allergies Exam Priority: Routine Procedure(s): Procedure Description: Diagnostic procedure Procedure Description: Right Heart Catheterization Procedure Description: O2 saturation Procedure Description: Coronary Angiography Abram SIMON; Diagnostic Cath Status: Urgent Diagnostic Findings * Left main is a medium caliber vessel with no significant stenotic lesions. * The left artery artery is a medium caliber vessel which appears to wrap around the LV apex. No significant stenotic lesions were noted. The proximal segment of the artery was noted to be somewhat tortuous. The artery gives of a higher diagonal branch off almost equal caliber with normal Significant as noted lesions.. * The left circumflex artery is a medium caliber nondominant vessel with no significant stenotic lesions. It gives off a high obtuse marginal branch(intermedius) with no significant stenotic lesions. * The right coronary artery is a medium to large caliber dominant vessel with no significant stenotic lesions. Conclusions 1. 57-year-old white female with no second past medical history, presented with progressive shortness of breath for 1 month. She was found to have severe aortic valve stenosis with a valve area of 0.56 cm2. She had normal LV size and ejection fraction. She has a strong family history for premature atherosclerotic heart diseas. For further evaluation of her cardiovascular status, a right and left heart catheterization with coronary angiogram was recommended. The findings are as follows,. 2. 1. Normal coronary arteries with no significant lesions.2. Pulmonary capillary wedge pressure 1 mmHg. Right atrial pressure was -2. RV pressure was 31/-3. PA pressure was 27/8 with a mean of 16. Pulmonary capillary wedge pressure was 2 mmHg. Cardiac output of 5.0 with an index of 2.0 by Marcus's method.(The reliability of these right heart pressures are questionable since our hemodynamic system was having some problems during the study.). Diagnostic RX Recommendation: other cardiac therapy w/o CABG/PCI Pressures Phase:Rest RV : 31 / -3 / 2 @ 12:54:00 PM PA : 27 / 8 ( 15 ) @ 12:58:00 PM RA : a wave = -1 v wave = -2 mean = -2 @ 1:08:00 PM a wave = 1 v wave = -1 mean = 0 @ 1:11:00 PM PCW : a wave = 2 v wave = 3 mean = 1 @ 12:59:00 PM O2 Content Phase:Rest PA : O2 Content O2: 61.8 @ 1:11:00 PM Saturations Phase:Rest AO : 93 @ 12:58:00 PM RA : 63 @ 1:08:00 PM RV : 62 @ 12:59:00 PM PA : 62 @ 1:11:00 PM Cardiac Output Phase:Rest Marcus : 5 @ 1:38:37 PM Marcus Cardiac Index: 2 @ 1:38:37 PM Flow Phase:Rest Qp : 5 @ 1:38:37 PM Qs : 5 @ 1:38:37 PM Clinical Evaluation EBL: 5mL-10mL Procedural Details Pre-Procedure Time Out. Identified patient by full name and date of as verbalized by the patient/guarantor. Does the consent match the physician's order: Yes. Accurate & Complete Informed Consent: Yes. Inpatient/Outpatient History & Physical on Chart: Yes. If H&P is completed, is and addenduem needed: No; If yes, is the addendum complete: N/A. Visualize and Verify Site with Patient/Guarantor: N/A. Relevant Radiology Images available: Yes. Pre-op teaching completed and patient verbalized understanding. The risks, benefits, and alternatives of sedation and/or procedure were discussed by physician. The patient agrees to continue. Procedure started. Ivanna Parra RT(R) was relieved by Francisca Michael RN, PATIENT OBSERVATION ASSISTANT as monitoring person. Outsole Flexer Indications: Worsening Angina. Chest Pain Symptom Assessment: Typical Angina Symptoms. Cardiovascular Instability: No. Correct patient, site and procedure confirmed by cath team. PERRLA. Strong, equal hand manager oncology bilaterally. Lungs clear x 5 lobes. IV Site on Arrival: 20 gauge in the right forearm. IV Fluids: 0.9% NaCl at KVO. 0 mL infused prior to wharf laborer. Pre Procedural Pulses: bilateral dorsalis pedis was 2+. Pre Procedural Pulses: bilateral posterior tibial was 2+. Patient on room air. bilateral groins was prepped with chloroprep then draped in the usual sterile fashion. Baseline sample Acquired. HR: 116 BPM. Physician notified. Patient's family in the wharf laborer waiting room. Dr Valverde will update at the completion of the procedure. Equipment: 6F - Femoral. Cardiac Cath Pack. ACIST Manifold Kit Model BT 2000. Heparinized Saline (2 units/mL), 1000 mL bag. Kit, Micropuncture. Physician arrived. Physician scrubbed in. Immediate Pre-Procedure Time Out. Correct Patient: Yes; Correct Procedure: Yes; Correct Site: Yes; Correct Patient Position: Yes; Correct Supplies: Yes; Dried Flammable Prep: Yes; Blood Products Available: N/A. Lidocaine 1% infiltrated to the right groin. Venous access obtained with a micropuncture set. Arterial access obtained with micropuncture set. [place] catheter inserted. 0.025 [place] wire in through the swan. 0.025 [place] wire outi. Oximetry samples were obtained. Normal venous range: 60-85%. Normal arterial range: 95-100%. Pressure measurements obtained. [place] out. A 5 [place] JL4 catheter in over the standard J wire and unable to cannulate. A 5 [place]gas[place] JL5 catheter in over the standard J wire. Multiple views taken of left coronary artery. Catheter removed over the standard wire. A 5 [place] JR4 catheter in over the standard J wire. Multiple views taken of right coronary artery. Catheter removed over the standard J wire. Physician scrubbed out. A Suture was successful obtaining hemostatsis at the Right Femoral vein insertion site. A Suture was successful obtaining hemostatsis at the Right Femoral artery insertion site. Sheath(s) sutured into position with 2-0 silk and sterile 4x4's and Op-site applied over the site. No oozing or signs and symptoms of hematoma noted. Arterial sheath flushed and connected to tranducer and pressure bag with heparinized saline. Post Procedure: Pulses reassessed and unchanged. PERRLA. Strong, equal hand manager oncology bilaterally. No VTE prophylaxis required. Medication's Wasted: Other = Fentanyl 50 mcg. Medication's Wasted: Heparin = 2500 Units. Medication's Wasted: Other = Benadryl mg. Total IV fluids: 290 mL. Post-op diagnosis: Normal coronaies. Complications: none. Estimated blood loss: 5mL-10mL. Responsiveness - Normal response to verbal stimuli; alert and oriented, PERRLA. Airway - Unaffected, no intervention required; spontaneous ventilation. Circulation: W/N/L, pulses unchanged. Nausea/Vomiting: No. Procedure completed. Patient transferred by bed to 1st floor. Vital chart was stopped. Access Site Site: Right Femoral vein Sheath Size: 6 Fr Hemostasis Method: Suture Hemostasis Success: Successful Site: Right Femoral artery Sheath Size: 5 Fr Hemostasis Method: Suture Hemostasis Success: Successful Procedure Medications Start: 12:42 PM Stop: 12:42 PM Medication: Versed Amount: 1 mg Route: I.V. Start: 12:44 PM Stop: 12:44 PM Medication: Fentanyl Amount: 50 mcg Route: I.V. Start: 12:41 PM Stop: 12:41 PM Medication: Benadryl Amount: 25 mg Route: I.V. Start: 12:49 PM Stop: 12:49 PM Medication: Versed Amount: 1 mg Route: I.V. Start: 12:52 PM Stop: 12:52 PM Medication: Heparin Amount: 1500 units Route: I.V. Start: 1:00 PM Stop: 1:00 PM Medication: 0.9% Saline Amount: 250 ml Route: I.V. bolus I, the attending physician, have reviewed and verified all procedure medications. Yes, all medications given per verbal order History/Risk Factors Hypertension: Yes Dyslipidemia: No Peripheral Arterial Disease (PAD): No Myocardial Infarction (IA): No Obesity: No Renal Disease: No Prior Interventions PCI: No CABG: No Valve Surgery: No Report Signatures Finalized by Dr Mayuri Valverde MD [facility] on 12/15/2022 09:37 PM
[2022-12-15 13:19] LABS: Alveolar-Arterial Oxygen Gradi 4.1 mmHg (5-10); Arterial Blood Gas Hematocrit 42.6 % (37-47); Blood Gas Sample Type Arterial; HGB O2 Sat 90.2 % (95-100); Methemoglobin 0.8 % (0.4-1.5); Oxygen Device ROOM AIR; Total Hemoglobin 13.9 g/dL (12-16)
[2022-12-15 13:22] LABS: Alveolar-Arterial Oxygen Gradi 6.8 mmHg (5-10); Arterial Blood Gas Hematocrit 41.5 % (37-47); Blood Gas Sample Type Arterial; Carboxyhemoglobin 1.8 %THgb (0.4-20.1); HGB O2 Sat 61.5 % (95-100); Methemoglobin 0.8 % (0.4-1.5); Oxygen Device ROOM AIR; Total Hemoglobin 13.5 g/dL (12-16)
[2022-12-15 13:25] LABS: Alveolar-Arterial Oxygen Gradi 6.4 mmHg (5-10); Arterial Blood Gas Hematocrit 42.9 % (37-47); Blood Gas Sample Type Arterial; Carboxyhemoglobin 1.8 %THgb (0.4-20.1); HGB O2 Sat 59.9 % (95-100); Methemoglobin 0.8 % (0.4-1.5); Oxygen Device ROOM AIR
[2022-12-15 13:28] LABS: Alveolar-Arterial Oxygen Gradi 6.5 mmHg (5-10); Arterial Blood Gas Hematocrit 40.4 % (37-47); Blood Gas Sample Type Arterial; Carboxyhemoglobin 1.8 %THgb (0.4-20.1); HGB O2 Sat 60.1 % (95-100); Methemoglobin 0.9 % (0.4-1.5); Oxygen Device ROOM AIR; Total Hemoglobin 13.2 g/dL (12-16)
--- NOTE | 2022-12-15 14:00 | PC.NURSE ---
Patient arrived back from [facility] Patient has sheath to right fem artery and right venous sheath. No hematoma noted. Nurse will pull both sheaths promptly per physician instruction. Patient has been educated on activity restrictions and signs and symptoms.
--- NOTE | 2022-12-15 15:02 | PC.NURSE ---
Femoral and venous sheath both pulled with no events. No hematoma noted. Dressing intact.
[2022-12-15] MEDS: spironolactone 25 mg Tablet PO (17:14)
[2022-12-15] MEDS: pantoprazole 40 mg SDV IVP (17:14)
--- NOTE | 2022-12-15 19:05 | PC.NURSE ---
Right groin site assessed at change of shift. Right groin dressing is dry and intact, site is soft, pedal pulses are palpable. Bedrest is completed at 20:30, patient is aware.
[2022-12-15] MEDS: atorvastatin 40 mg Tablet PO (20:14)
--- NOTE | 2022-12-15 20:30 | PC.NURSE ---
Patients bedrest is completed, patient got OOB and walked to the bathroom. After patient got back in bed right groin site was assessed. Dressing is dry and intact, site is soft no hematoma present, and pedal pulses are palpable.
--- NOTE | 2022-12-15 22:59 | PM.PN ---
Subjective Subjective: Seen this morning before angiogram. Denies chest pain. Has been able to lie down better. Lower extremity edema has been improving. Erythema has been disappearing. Vitals/I&O/Wt Last Vital Signs Temp 99.8 F H 12/15/22 20:00 Pulse 85 12/15/22 20:00 Resp 24 H 12/15/22 20:00 BP 127/76 12/15/22 20:00 Pulse Ox 93 12/15/22 20:00 O2 Del Method 12/15/22 20:00 O2 Flow Rate 2 12/14/22 04:00 12/15/22 12/15/22 12/15/22 06:59 14:59 22:59 Intake Total 200 / 680 120 / 120 Output Total 1300 / 2800 1680 / 1680 Balance -1100 / -2120 -1560 / -1560 Weight last 48 hrs Weight 127.097 kg Physical Exam Narrative: Accompanied by family. Const: COMMON NORMALS: patient oriented x3 and alert GENERAL APPEARANCE: cooperative NUTRITIONAL APPEARANCE: obese ORIENTATION/CONSCIOUSNESS: Yes awake HENMT: COMMON NORMALS: oropharynx normal Resp: COMMON NORMALS: normal respiratory effort and clear to auscultation bilaterally AUSCULTATION: clear to auscultation bilaterally Cardio: COMMON NORMALS: regular rhythm, S1 normal heart sound present, S2 normal heart sound present and No murmurs present (Cardio) RHYTHM: regular rhythm HEART SOUNDS: S1 normal heart sound present and S2 normal heart sound present GI: COMMON NORMALS: Normal to inspection, nondistended, normoactive bowel sounds present, Soft to palpation and non-tender PALPATION: Yes Soft to palpation Extremity: COMMON NORMALS: no joint enlargement GENERAL: Yes edema (2+ BL LE) Neuro: COMMON NORMALS: patient oriented x3 and moves all extremities SENSORIUM/ORIENTATION: Yes alert Skin: OTHER: Resolving erythema at lower legs overlying edema. No diffuse erythema. No warmth to touch. No drainage. Urinary Catheter Management: Fox: Cath Placed During This Visit: yes Reason for Continuing Indwelling Catheter: Acute Urinary Retention or Obstruction Urinary Catheter Date of Insertion: 12/10/22 Urinary Catheter Time of Insertion: 21:00 Data 12/14/22 03:30 12/15/22 03:00 A&P Assessment and plan (1) Hypertensive emergency: (2) Acute CHF: (3) Bilateral edema of lower extremity: (4) NSTEMI (non-ST elevated myocardial infarction): (5) Pulmonary edema: (6) Morbid obesity: Plan Acute systolic CHF exacerbation: Today underwent coronary angiography. Discussing with cardiology, given CHF, underlying severe aortic stenosis, request for additional monitoring after procedure overnight. Otherwise she has been improving. In negative balance. Continue IV diuretics for now. Weaning down to room air. Home O2 evaluation prior to discharge, possibly tomorrow if everything goes well. Improving severe exacerbation of CHF with severe edema, orthopnea, hypoxia. Continue IV diuresis. Follow-up BMP for reassessment of potassium. Renal function. At risk of electrolyte imbalance. Monitor on telemetry. Reassessment BMP requested. Reviewed I&O. Continue diuresis for acute decompensation of systolic CHF. Discussed with her and her family results of TTE with finding of reduced ejection fraction, down to 43%. Additionally with noted severe aortic stenosis. Discussed with her reviewed renal function, creatinine with slight worsening up to 1.1. Reassess renal function, requested. Dominique for accurate I&O for now. Possible NSTEMI: Continues with cardiac medications, continues on heparin drip for now. PTT noted supratherapeutic, to 212.5, however, drawn from the same arm after a pause. Cannot be drawn from the right arm with history of mastectomy. Cannot be drawn from lower extremities. We will redraw again at 1730, if back in therapeutic range, potentially switch to Lovenox for anticoagulation over 72 hours presentation. She remains chest pain-free. Discussed with her and family for now stress test delayed, will need additional assessment for possible CAD, stress test once volume optimized, able to lie down to tolerate the test and/or additional assessment by angiography if needed. Abnormal TSH: On my assessment appears to be subclinical hypothyroidism. Free T4 noted normal at 1.26. Hypertensive urgency: Resolved. Continue oral antihypertensives. Additional dose of amlodipine given today. Continue spironolactone. Cardiac murmur, cardiac echo reviewed, as above MATILDE: Mild, with some worsening, creatinine up to 1.2. Reassess chemistry. Avoid NSAID. May portend poor prognosis in case not tolerating diuresis. Attestations Medical Necessity Statement*: Continue to enforce with management of acute systolic CHF with underlying severe aortic stenosis, MATILDE. Diagnoses Hypertensive emergency I16.1 Acute CHF I50.9 Bilateral edema of lower extremity R60.0 NSTEMI (non-ST elevated myocardial infarction) I21.4 Pulmonary edema J81.1 Morbid obesity E66.01
[2022-12-16] VITALS: BP 125/74; PULSE 90; RESP 17; TEMP 37.2; O2SAT 94
[2022-12-16 03:41] LABS: Anion Gap 15.8 (5-19); Blood Urea Nitrogen 16 mg/dL (6-20); Calcium 9.5 mg/dL (8.5-10.5); Carbon Dioxide 28 mmol/L (22-29); Chloride 95 mmol/L (98-107); Glomerular Filtration Rate 51.4 mL/min (90-130); Glucose 126 mg/dL (65-115); Osmolality Calculated 283 mOsm/kg (285-295); Potassium 3.8 mmol/L (3.5-5.1); Sodium 135 mmol/L (136-145)
[2022-12-16 04:00] VITALS: BP 132/70; PULSE 78; RESP 18; TEMP 37.1; O2SAT 94
[2022-12-16] MEDS: enoxaparin 150 mg/mL Syringe 130 MG SUBCUT (05:54)
[2022-12-16 06:00] VITALS: PULSE 87
[2022-12-16] MEDS: carvedilol 3.125 mg Tablet PO (06:27)
--- NOTE | 2022-12-16 07:20 | P.PN_ITS ---
Subjective Subjective: Patient is stable. Denies chest pain or shortness of breath. Plan for outpatient TAVR. Vitals/I&O/Wt Last Vital Signs Temp 98.8 F 12/16/22 04:00 Pulse 78 12/16/22 04:00 Resp 18 12/16/22 04:00 BP 132/70 12/16/22 04:00 Pulse Ox 94 12/16/22 04:00 O2 Del Method 12/16/22 00:00 O2 Flow Rate 2 12/14/22 04:00 12/15/22 12/16/22 12/16/22 22:59 06:59 14:59 Intake Total 120 / 120 200 / 320 Output Total 2280 / 2280 1100 / 3380 Balance -2160 / -2160 -900 / -3060 Weight last 48 hrs Weight 275 lb 3.2 oz Weight 280 lb 3.2 oz Physical Exam Narrative: GENERAL: Patient is alert, awake and oriented x3. [] NECK: No jugular vein distension. [] HEENT: No cyanosis. No icterus. No pallor. [] HEART: Regular S1 and S2. Grade 4/6 systolic murmur LUNGS: Clear to auscultate bilaterally. [] CENTRAL NERVOUS SYSTEM: Grossly nonfocal. [] EXTREMITIES: Lower extremities with 1+ edema bilaterally. Pulses palpable in the lower extremities, both dorsalis pedis and posterior tibial. [] Urinary Catheter Management: Fox: Cath Placed During This Visit: yes Reason for Continuing Indwelling Catheter: Acute Urinary Retention or Obstruction Urinary Catheter Date of Insertion: 12/10/22 Urinary Catheter Time of Insertion: 21:00 Data 12/14/22 03:30 12/16/22 02:56 A&P Assessment and plan (1) Congestive heart failure: Secondary to severe aortic stenosis. Coronary angiogram performed yesterday. Plan for outpatient TAVR. (2) Bilateral edema of lower extremity: Most likely this is related to the heart failure, recent weight gain and obesity. She may be carefully treated with IV diuretics and other symptomatic measures. She has significant improvement of the swelling/edema since hospital admission (3) Severe aortic valve stenosis: Patient has severe aortic valve stenosis. Outpatient referral sent to [facility] in [place] for valve replacement. Likely will be seen next week. (4) Elevated blood pressure reading: Continue current medications Plan Will be discharged from cardiology standpoint. Please call with questions. Attestations Medical Necessity Statement*: Care expected to cross 2 midnights. Coding Level of Care Code Acute Code for [facility] Fwd Diagnoses Congestive heart failure I50.9 Bilateral edema of lower extremity R60.0 Severe aortic valve stenosis I35.0 Elevated blood pressure reading R03.0
[2022-12-16 08:29] VITALS: BP 126/66; PULSE 90; RESP 12; TEMP 36.8; O2SAT 91
[2022-12-16] MEDS: aspirin 81 mg EC Tablet PO (08:56)
[2022-12-16] MEDS: amlodipine 5 mg Tablet PO (08:56)
[2022-12-16] MEDS: FUROsemide 10 mg/mL SDV 4mL 40 MG IVP (08:56)
[2022-12-16 11:10] VITALS: BP 126/66; PULSE 90; RESP 12; TEMP 36.8; O2SAT 91
--- NOTE | 2022-12-16 11:48 | P.DS_ITS ---
Discharge Providers Date of Admission: 12/10/22 16:52 Date of Discharge: December 16, 2022 Attending Provider at Admission: Raúl Clarke MD Attending Provider at Discharge: Helder Anne Diagnoses at Discharge Discharge Diagnosis (1) Hypertensive emergency: Status: Acute (2) Acute CHF: Status: Acute (3) Bilateral edema of lower extremity: Status: Acute (4) NSTEMI (non-ST elevated myocardial infarction): Status: Acute (5) Pulmonary edema: Status: Acute (6) Morbid obesity: Status: Acute Reason for Visit Reason for Visit: SOB Hospital Course Hospital Course 57-year-old lady was admitted for assessment management of acute exacerbation of diastolic CHF, newly diagnosed, despite outpatient treatment with Lasix, on presentation also with hypertensive urgency, was initially started on nitroglycerin drip, IV Lasix, spironolactone, fluid restriction, Fox catheter for I&O monitoring, blood pressures gradually improved, was started on was additionally started on amlodipine, later carvedilol. During hospitalization also found to have new cardiomyopathy, ejection fraction on echocardiogram down to 43%. No prior available. Also noted severe aortic stenosis, mean gradient 50.6, peak gradient 128, peak velocity 5.48. Trace to mild AVR. Mild MVR. No pericardial effusion. After optimization of acute CHF, improvement in volume status and improvement in orthopnea, she underwent additional assessment with coronary angiography which revealed no significant blockages. She will follow-up with cardiology with referral for further assessment for repair of stenotic aortic valve. Bilateral lower extremity erythema superimposed on edema, possibly mild cellulitis improved with diuresis. Resolving. During hospitalization noted MATILDE or CKD, creatinine up to 1.1. Stop diclofenac. Stop and avoid Bactrim. Avoid any medications that may risk MATILDE. Please follow-up renal function. Please also follow-up thyroid function, noted to have subclinical hypothyroidism. Physical Exam Narrative: Accompanied by family. Const: COMMON NORMALS: patient oriented x3 and alert GENERAL APPEARANCE: cooperative NUTRITIONAL APPEARANCE: obese ORIENTATION/CONSCIOUSNESS: Yes awake HENMT: COMMON NORMALS: oropharynx normal Resp: COMMON NORMALS: normal respiratory effort and clear to auscultation bilaterally AUSCULTATION: clear to auscultation bilaterally Cardio: COMMON NORMALS: regular rhythm, S1 normal heart sound present, S2 normal heart sound present and No murmurs present (Cardio) RHYTHM: regular rhythm HEART SOUNDS: S1 normal heart sound present and S2 normal heart sound present GI: COMMON NORMALS: Normal to inspection, nondistended, normoactive bowel sounds present, Soft to palpation and non-tender PALPATION: Yes Soft to palpa tion Extremity: COMMON NORMALS: no joint enlargement GENERAL: Yes edema (1+ BL LE) Neuro: COMMON NORMALS: patient oriented x3 and moves all extremities SENSORIUM/ORIENTATION: Yes alert Skin: OTHER: Resolving erythema at lower legs overlying edema. No diffuse erythema. No warmth to touch. No drainage. Urinary Catheter Management: Fox: Cath Placed During This Visit: yes, but has since been removed by the nurse Reason for Continuing Indwelling Catheter: Accurate Measurement of Urinary Output in Critically Ill Patients Urinary Catheter Date of Insertion: 12/10/22 Urinary Catheter Time of Insertion: 21:00 Date Urinary Catheter Removed: 12/16/22 Time Urinary Catheter Discontinued: 10:21 Discharge Data Studies Completed and Pending Completed Studies During Hospitalization Category Date Time Status APPLICATIONS CHEMIST request for service Routine Exams 12/15/22 13:00 Completed XR chest 1V portable [id number] Stat Exams 12/10/22 15:05 Completed CV. echo complete* [id number] Stat Ultrasound 12/11/22 06:00 Completed Pending at discharge Category Date Time Status ABG Coox Only Routine Lab 12/15/22 13:06 Results ABG Coox Only Routine Lab 12/15/22 13:10 Results ABG Coox Only Routine Lab 12/15/22 13:13 Results ABG Coox Only Routine Lab 12/15/22 13:16 Results Basic Metabolic Panel AM LABS Lab 12/17/22 04:00 Ordered Radiology Impressions Chest X-Ray 12/10/22 15:05 IMPRESSION: Imaging findings of pulmonary edema with small left pleural effusion. Pneumonia should be excluded clinically. Laboratory Results WBC 5.4 10^3/uL (4.0-10.0) 12/14/22 03:30 RBC 5.29 10^6/uL (4.1-5.3) 12/14/22 03:30 Hgb 13.0 g/dL (11.5-15.3) 12/14/22 03:30 Hct 43.5 % (37.0-47.0) 12/14/22 03:30 MCV 82.2 fl (81-99) 12/14/22 03:30 MCH 24.6 pg (28.0-34.0) L 12/14/22 03:30 MCHC 29.9 g/dL (30.0-36.0) L 12/14/22 03:30 RDW 17.5 % (12.1-15.1) H 12/14/22 03:30 Plt Count 228 10^3/cmm (130-400) 12/14/22 03:30 MPV 10.0 fL (7.4-10.4) 12/14/22 03:30 Neut % (Auto) 53.3 % 12/14/22 03:30 Lymph % (Auto) 28.1 % 12/14/22 03:30 [place] % (Auto) 14.2 % 12/14/22 03:30 Eos % (Auto) 3.5 % 12/14/22 03:30 Baso % (Auto) 0.7 % 12/14/22 03:30 Neut # (Auto) 2.86 10^3/uL (1.8-7.7) 12/14/22 03:30 Lymph # (Auto) 1.5 10^3/uL (0.8-4.8) 12/14/22 03:30 [place] # (Auto) 0.8 10^3/uL (0.2-0.9) 12/14/22 03:30 Eos # (Auto) 0.2 10^3/uL (0.0-0.8) 12/14/22 03:30 Baso # (Auto) 0.0 10^3/uL (0.0-0.1) 12/14/22 03:30 Nucleated RBC % (auto) 0 % 12/14/22 03:30 Nucleated RBCs # 0.0 /100WBC 12/14/22 03:30 APTT 41.4 SECONDS (23.9-36.7) H D 12/12/22 17:25 Specimen Type Arterial 12/15/22 13:16 Dave Test N/a 12/15/22 13:16 A-a O2 Gradient 6.5 mmHg (5-10) 12/15/22 13:16 Hematocrit 40.4 % (37-47) 12/15/22 13:16 Hgb O2 Saturation 60.1 % (95-100) L 12/15/22 13:16 Carboxyhemoglobin 1.8 %THgb (0.4-20.1) 12/15/22 13:16 Methemoglobin 0.9 % (0.4-1.5) 12/15/22 13:16 Total Hemoglobin 13.2 g/dL (12-16) 12/15/22 13:16 O2 Delivery Device Room air 12/15/22 13:16 Operations Logistics Analyst ID Gal 12/15/22 13:16 Sodium 135 mmol/L (136-145) L 12/16/22 02:56 Potassium 3.8 mmol/L (3.5-5.1) 12/16/22 02:56 Chloride 95 mmol/L (98-107) L 12/16/22 02:56 Carbon Dioxide 28 mmol/L (22-29) 12/16/22 02:56 Anion Gap 15.8 (5-19) 12/16/22 02:56 BUN 16 mg/dL (6-20) 12/16/22 02:56 Creatinine 1.1 mg/dL (0.5-0.9) H 12/16/22 02:56 GFR Calculation 51.4 mL/min (90-130) L 12/16/22 02:56 Glucose 126 mg/dL (65-115) H 12/16/22 02:56 Estimat Average Glucose 97 12/10/22 15:59 Hemoglobin A1c 5.0 % (4.0-6.0) 12/10/22 15:59 Calculated Osmolality 283 mOsm/kg (285-295) L 12/16/22 02:56 Calcium 9.5 mg/dL (8.5-10.5) 12/16/22 02:56 Phosphorus 4.0 mg/dL (2.5-4.5) 12/11/22 03:13 Magnesium 2.2 mg/dL (1.7-2.3) 12/15/22 03:00 Troponin T Baseline 86 ng/L (0-10) H 12/10/22 15:59 Troponin T 120 Minute 99.95 ng/L (0-10) H 12/10/22 18:06 Delta Troponin T 13.95 ABS# (0-10) H* 12/10/22 18:06 Troponin T Hi Sens 6Hr 90.90 ng/L (0-10) H 12/10/22 21:58 Troponin T Hi Sens 6Hr Delta 4.90 ng/L (0-12) 12/10/22 21:58 NT-Pro-B Natriuret Pep 18211 pg/mL (0-125) H 12/11/22 03:13 Triglycerides 84 mg/dL (0-150) 12/10/22 15:59 Cholesterol 130 mg/dL (0-200) 12/10/22 15:59 LDL Cholesterol, Calc 74 mg/dL (50-129) 12/10/22 15:59 HDL Cholesterol 39 mg/dL (60-100) L 12/10/22 15:59 LDL/HDL Ratio 1.90 RATIO (0.00-3.22) 12/10/22 15:59 Cholesterol/HDL Ratio 3.33 mg/dL (0.0-4.40) 12/10/22 15:59 TSH 4.30 uIU/mL (0.27-4.20) H 12/10/22 15:59 Free T4 1.26 ng/dL (0.82-1.77) 12/11/22 03:24 Urine Color Colorless (Yellow) 12/10/22 22:00 Urine Appearance Clear (CLEAR) 12/10/22 22:00 Urine pH 8 (5-7) H 12/10/22 22:00 Ur Specific [place] 1.010 (1.005-1.030) 12/10/22 22:00 Urine Protein Neg (Negative) 12/10/22 22:00 Urine Glucose (UA) Norm (Normal) 12/10/22 22:00 Urine Ketones Negative (Negative) 12/10/22 22:00 Urine Blood Neg (Negative) 12/10/22 22:00 Urine Nitrate Negative (Negative) 12/10/22 22:00 Urine Bilirubin Neg (Negative) 12/10/22 22:00 Prot Sulfosalicylic Acd Negative (Negative) 12/10/22 22:00 Urine Urobilinogen Neg mg/dL (Negative) 12/10/22 22:00 Ur Leukocyte Esterase Negative (Negative) 12/10/22 22:00 Vitals Last Vital Signs Temp 98.3 F 12/16/22 11:10 Pulse 90 12/16/22 11:10 Resp 12 12/16/22 11:10 BP 126/66 12/16/22 11:10 Pulse Ox 91 12/16/22 11:10 O2 Del Method 12/16/22 00:00 O2 Flow Rate 2 12/14/22 04:00 Discharge Plan Discharge Patient Disposition: Home Condition: Stable Prescriptions: New spironolactone 25 mg Tablet 25 mg PO Q24H Qty: 90 0RF aspirin 81 mg Tablet,Delayed Release (Dr/Ec) 81 mg PO DAILY Qty: 90 0RF atorvastatin 40 mg Tablet 40 mg PO BEDTIME Qty: 90 0RF carvedilol 3.125 mg Tablet 3.125 mg PO Q12H Qty: 180 0RF Continued furosemide [Lasix] 20 mg tablet 20 mg PO DAILY Qty: 14 0RF albuterol sulfate [Ventolin HFA] 90 mcg/actuation HFA aerosol inhaler 2 puff inhalation Q6H PRN (Reason: shortness of breath or wheezing) Qty: 8.5 0RF promethazine-DM 6.25-15 mg/5 mL syrup 5 ml PO Q6H PRN (Reason: cough) Qty: 200 0RF zinc acetate 50 mg (zinc) Capsule 50 mg PO DAILY magnesium 200 mg Tablet 200 mg PO DAILY Discontinued sulfamethoxazole-trimethoprim [Bactrim DS] 800-160 mg tablet 1 tab PO BID 10 Days Qty: 20 0RF diclofenac sodium 75 mg tablet,delayed release (DR/EC) 75 mg PO BID Discharge Orders: Discharge Order (Routine); Ordered 12/16/22 Ordered By: Helder Anne Referrals: [facility] [Provider Group] - 12/19/22 1:30 pm (Please see Dr. Wallace at [facility] on 12/19/22 at 130pm. Please arrive 15 min early to complete paperwork. ) Sara Quintero FNP [Nurse Practitioner] - ([facility] will contact you to schedule an follow-up appointment in 4 to 7 days. If you haven't heard from them by Sunday afternoon. Please call ) Discharge Diet: As Directed and Cardiac Patient Instructions: Heart Failure (DC), Aortic Stenosis (DC), Pulmonary Edema (DC), Chronic Hypertension (DC), Fluid Restriction (GEN), Heart Catheterization (DC), CHF Stoplight, Opioid Safety, Post Angiogram Home Care Instructions Activity Restrictions/Additional Instructions: Follow-up with your primary provider as well as cardiology regarding stenosis, congestive heart failure as well as hypertension. Monitor weights at home, measure blood pressures also 3 times daily, write down values to bring to your appointment. Maintain fluid restriction note less than 1250 mL/day. Follow-up with your primary doctor and have them recheck your thyroid function with finding of subclinical hypothyroidism. Follow-up with your primary doctor for reassessment of left knee pain and osteoarthritis. Have your primary doctor follow-up your kidney function due to finding of mildly abnormal kidney function. Please stop diclofenac, avoid any NSAIDs. Avoid Bactrim. Or any other medications that may risk kidney injury. Discharge Attestations Time Spent in Discharge Care*: greater than 30 min Quality Metrics Clinical Quality Measures [ No reported AMI, CVA or VTE this stay] Coding Level of Care Code Acute Code for [facility] Fwd Diagnoses Hypertensive emergency I16.1 Acute CHF I50.9 Bilateral edema of lower extremity R60.0 NSTEMI (non-ST elevated myocardial infarction) I21.4 Pulmonary edema J81.1 Morbid obesity E66.01
[2022-12-16 13:33] VITALS: BP 126/66
--- NOTE | 2022-12-16 13:47 | PC.NURSE ---
discharge instructions given and explained.pt verb understanding of instructions.discharged via w/c to exit.S.O. to drive pt home.
== END 2022-12-16 13:49 | disposition home or self-care (01) | DRG 280 ==
LOC: ER 17:00 → ICU 17:48 → CSU 12-12 20:26
PROVIDERS: Internal Medicine; Internal Medicine Cardiovascular Disease; Admitting Provider Family Medicine; Emergency Provider Emergency Medicine; Visit Provider Internal Medicine
PROC: B2111ZZ Fluoroscopy of Multiple Coronary Arteries using Low Osmolar Contrast (ICD-10-PCS; principal; 2022-12-15 13:30)
DX: I16.0 Hypertensive urgency (principal); I50.23 Acute on chronic systolic (congestive) heart failure; I21.4 Non-ST elevation (NSTEMI) myocardial infarction; I42.9 Cardiomyopathy, unspecified; N17.9 Acute kidney failure, unspecified; I13.0 Hypertensive heart and chronic kidney disease with heart failure and stage 1 through stage 4 chronic kidney disease, or unspecified chronic kidney disease; N18.9 Chronic kidney disease, unspecified; I35.0 Nonrheumatic aortic (valve) stenosis; Z79.51 Long term (current) use of inhaled steroids; E66.01 Morbid (severe) obesity due to excess calories; Z68.38 Body mass index [BMI] 38.0-38.9, adult; Z85.3 Personal history of malignant neoplasm of breast; Z92.21 Personal history of antineoplastic chemotherapy; Z92.3 Personal history of irradiation; Z90.11 Acquired absence of right breast and nipple; Z82.49 Family history of ischemic heart disease and other diseases of the circulatory system
CPT/HCPCS: 36415; 36600; 51702; 71045; 80048; 80061; 81003; 82810; 83036; 83735; 83880; 84100; 84439; 84443; 84484; 85025; 85730; 93005; 93306; 93456; 96365; 96372; 96375; 99152; 99153; 99285; C1751; C1769; C1887; C1894; C9113; J1200; J1644; J1650; J1940; J2250; J3010; J3490; Q9967

== ENCOUNTER → 2022-12-19 14:25 | Outpatient (BNVA) | payer OTHER, SELFPAY | PROVIDERS: PCP Family Medicine; Visit Provider Family Medicine | DX: I35.0 Nonrheumatic aortic (valve) stenosis (principal); I50.9 Heart failure, unspecified; I21.4 Non-ST elevation (NSTEMI) myocardial infarction; R60.0 Localized edema; R79.89 Other specified abnormal findings of blood chemistry; Z09 Encounter for follow-up examination after completed treatment for conditions other than malignant neoplasm | CPT/HCPCS: 80048 ==

== ENCOUNTER 2022-12-27 14:13 | Outpatient (CLI) | payer OTHER, SELFPAY ==
--- NOTE | 2022-12-27 14:31 | MM_ITS ---
WS: [id number] LEFT 3D TOMOSYNTHESIS DIGITAL MAMMOGRAPHY WITH CAD CLINICAL INFORMATION: HX BREAST CA; RT MST HISTORY: Prior RIGHT mastectomy. COMPARISON: None. TECHNIQUE: 3 views of the left breast were obtained. FINDINGS: Scattered fibroglandular densities of the left breast. No suspicious focal mass, asymmetry, calcifications, or architectural distortion. No evidence of terrell gnancy. MM/[place] [id number] IMPRESSION: BI-RADS: 1-Negative FOLLOW UP: 1 Year Follow-up Recommend return to annual diagnostic mammography.
== END 2022-12-27 14:14 | disposition home or self-care (01) ==
LOC: RAD 14:20
PROVIDERS: PCP Family Medicine; Visit Provider Family Medicine
DX: Z12.31 Encounter for screening mammogram for malignant neoplasm of breast (principal); Z85.3 Personal history of malignant neoplasm of breast; Z90.11 Acquired absence of right breast and nipple
CPT/HCPCS: 77061; 77063; 77067; G0279